=== PATIENT | female | born 1990 | race Caucasian/White ===

== ENCOUNTER 2019-01-12 19:33 | Emergency (ER) | payer SELFPAY ==
[2019-01-12] MEDS ORDERED: KETOROLAC 30 MG/ML INJ ONE (19:58)
[2019-01-12] MEDS ORDERED: HYDROCODONE/APAP 10/325 TAB ONE (20:48)
--- NOTE | 2019-01-12 20:50 | EDPHYS ---
Physician Documentation [facility] Name: Kimber Calvin Age: 28 yrs Sex: Female : 1990 Arrival Date: 01/12/2019 Time: 19:36 Bed 11 Private MD: ED Physician Phill Lantigua HPI: 01/12 20:20 This 28 yrs old Female presents to ER via Ambulatory with complaints of Jaw jmm Pain. 20:20 The patient presents with pain. Onset: The symptoms/episode began/occurred acutely, jmm just prior to arrival. Duration: The symptoms are continuous. This is a 28 year old female with no chronic medical conditions that presents to the ED with complaints of dental pain which radiate to the right cheek. Patient states pain began while eating just prior to arrival. Patient states she had broken the tooth 3 days ago. Denies fever. . 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 - Social history:: Smoking status: Patient uses tobacco products, smokes one pack cigarettes per day. Patient/guardian denies using alcohol, street drugs. - Ebola Screening: : No symptoms or risks identified at this time. ROS: 20:20 Constitutional: Negative for fever, chills, and weight loss. jmm 20:20 ENT: Positive for dental pain. 20:20 All other systems are negative. Exam: 20:20 Eyes: EOMI, no conjunctival erythema appreciated jmm 20:20 Neck: Trachea midline, Supple Chest/axilla: Normal chest wall appearance and motion. Cardiovascular: Regular rate and rhythm. No edema appreciated Respiratory: Normal respirations, no respiratory distress appreciated Back: Normal ROM Skin: General appearance color normal MS/ Extremity: Moves all extremities, no obvious deformities appreciated, no edema noted to the lower extremities Neuro: Awake and alert, normal gait Psych: Behavior is normal, Mood is normal, Patient is cooperative and pleasant 20:20 Constitutional: The patient appears alert, awake, uncomfortable. 20:20 Head/face: no swelling is appreciated to the face. 20:20 ENT: Dental exam: dental caries, that is moderate, specifically in the upper right third molar (#1), upper right second molar (#2) and upper right first molar (#3). Vital Signs: 19:54 BP 145 / 103; Pulse 100; Resp 18 S; Temp 98.4(O); Pulse Ox 99% on R/A; Weight 99.79 kg bb (R); Height 5 ft. 3 in. (160.02 cm) (R); Pain 10/10; 19:54 Body Mass Index 38.97 (99.79 kg, 160.02 cm) bb MDM: 20:20 Patient medically screened. po 20:49 Data reviewed: vital signs, nurses notes. Counseling: I had a detailed discussion with po the patient and/or guardian regarding: the historical points, exam findings, and any diagnostic results supporting the discharge/admit diagnosis, the need for outpatient follow up, to return to the emergency department if symptoms worsen or persist or if there are any questions or concerns that arise at home. ED course: pain appears related to dental pain. no swelling appreciated, patient is alert and non toxic in appearance, vitals are normal. patient advised to follow up with dentist and otherwise given return precautions for increased pain, swelling, fever, difficulty breathing, ect. patient understood and agrees with the plan of care. . Administered Medications: 20:38 Drug: [place] 10 mg-325 mg 1 tabs Route: PO; ak1 20:49 Follow up: Response: No adverse reaction ak1 Disposition: 01/13 02:26 Co-signature as Attending Physician, Phill Lantigua MD. rn Disposition: 01/12/19 20:50 Discharged to Home. Impression: Dental Pain. - Condition is Stable. - Discharge Instructions: Dental Pain. - Prescriptions for penicillin V potassium 500 mg Oral tablet - take 1 tablet by ORAL route every 6 hours; 40 tablet. Ultracet 37.5- 325 mg Oral Tablet - take 1 tablet by ORAL route every 6 hours - for up to 5 days; do not exceed 8 tablets per day.; 12 tablet. - Medication Reconciliation Form, Thank You Letter, Antibiotic Education, Prescription Opioid Use form. - Follow up: Private Physician; When: 2 - 3 days; Reason: Recheck today's complaints, Continuance of care, Re-evaluation by your physician. Signatures: Delbert Espinosa PA PA jmm Ballard Joslyn, RN RN Phill Portillo MD MD rn Nini Herndon RN RN ak1 Corrections: (The following items were deleted from the chart) 01/12 21:00 20:50 01/12/2019 20:50 Discharged to Home. Impression: Dental Pain. Condition is ak1 Stable. Forms are Medication Reconciliation Form, Thank You Letter, Antibiotic Education, Prescription Opioid Use. Follow up: Private Physician; When: 2 - 3 days; Reason: Recheck today's complaints, Continuance of care, Re-evaluation by your physician. po
--- NOTE | 2019-01-12 20:50 | ER ---
Nurse's Notes [facility] Name: Kimber Calvin Age: 28 yrs Sex: Female : 1990 Arrival Date: 01/12/2019 Time: 19:36 Bed 11 Private MD: Diagnosis: Dental Pain Presentation: 01/12 19:54 Presenting complaint: Patient states: she started having severe right sided jaw pain bb 10 while she was eating a little while ago. Transition of care: patient was not received from another setting of care. Onset of symptoms was January 12, 2019. Risk Assessment: Do you want to hurt yourself or someone else? Patient reports no desire to harm self or others. Initial Sepsis Screen: Does the patient meet any 2 criteria? No. Patient's initial sepsis screen is negative. Does the patient have a suspected source of infection? No. Patient's initial sepsis screen is negative. Care prior to arrival: None. 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 - Social history:: Smoking status: Patient uses tobacco products, smokes one pack cigarettes per day. Patient/guardian denies using alcohol, street drugs. - Ebola Screening: : No symptoms or risks identified at this time. Screenin:03 Abuse screen: Denies threats or abuse. Denies injuries from another. Nutritional ak1 screening: No deficits noted. Tuberculosis screening: No symptoms or risk factors identified. Fall Risk None identified. Assessment: 20:02 General: Appears in no apparent distress. Behavior is calm, cooperative. Pain: ak1 Complains of pain in mouth. Neuro: No deficits noted. Cardiovascular: No deficits noted. Respiratory: No deficits noted. GI: No signs and/or symptoms were reported involving the gastrointestinal system. : No signs and/or symptoms were reported regarding the genitourinary system. EENT: Reports pain in right cheek and right mandible. Derm: No signs and/or symptoms reported regarding the dermatologic system. Musculoskeletal: No signs and/or symptoms reported regarding the musculoskeletal system. Vital Signs: 19:54 BP 145 / 103; Pulse 100; Resp 18 S; Temp 98.4(O); Pulse Ox 99% on R/A; Weight 99.79 kg bb (R); Height 5 ft. 3 in. (160.02 cm) (R); Pain 10/10; 19:54 Body Mass Index 38.97 (99.79 kg, 160.02 cm) ED Course: 19:36 Patient arrived in ED. ds1 19:54 Triage completed. bb 19:54 Arm band placed on Patient placed in an exam room, on a stretcher, on pulse oximetry. bb 20:02 Nini Herndon, RN is Primary Nurse. ak1 20:03 Patient has correct armband on for positive identification. Bed in low position. Call ak1 light in reach. 20:05 Delbert Espinosa PA is PHCP. po 20:05 Phill Lantigua MD is Attending Physician. [facility] 20:59 No provider procedures requiring assistance completed. Patient did not have IV access ak1 during this emergency room visit. Administered Medications: 20:38 Drug: [place] 10 mg-325 mg 1 tabs Route: PO; ak1 20:49 Follow up: Response: No adverse reaction ak1 Outcome: 20:50 Discharge ordered by . [facility] 21:00 Discharged to home ambulatory, with family. ak1 21:00 Condition: good 21:00 Discharge instructions given to patient, family, Instructed on discharge instructions, follow up and referral plans. no drinking with medication, no driving heavy equipment, medication usage, safe sex practices, control, Demonstrated understanding of instructions, follow-up care, medications, Prescriptions given X 2. 21:00 Patient left the ED. ak1 Signatures: Delbert Espinosa PA PA jmm Sanford, Demi ds1 Joslyn Stiles RN RN bb Nini Herndon, MINDA RN ak1
[2019-01-12 21:37] VITALS: BP 145/103; TEMP 98.4; O2SAT 99
== END 2019-01-12 21:00 | disposition home or self-care (01) ==
LOC: ER 19:33
DX: K08.89 Other specified disorders of teeth and supporting structures (principal); F17.210 Nicotine dependence, cigarettes, uncomplicated
CPT/HCPCS: 99283

== ENCOUNTER 2019-10-03 21:27 | Emergency (ER) | payer SELFPAY ==
--- OUTSIDE RECORDS SUMMARY | 2019-10-03 21:29 | XMS REPORT | Summary of Care ---
:1990 Author Organization [facility] Address [address] [place] [address] Care Team Providers Name Role Phone Armani Waddell PUBLICITY DIRECTOR Primary Care Provider Reason for Visit Reason Comments Well Woman Exam Encounter Details Date Type Department Care Team Description 07/09/2019 Office Visit [facility]- Armani Waddell Well woman exam (Primary Dx); NEGIN Garcia Encounter for surveillance of contraceptives, unspecified contraceptive; [address] History of bilateral tubal ligation; [place], [place] [address] Screening for STD (sexually transmitted disease); [address] [place] [address] Poor dental hygiene; [phone] Class 2 obesity due to excess calories with body mass index (BMI) of 36.0 to 36.9 in adult, unspecified whether serious comorbidity present; BMI 36.0-36.9,adult; Tobacco use disorder Allergies No Known Allergiesdocumented as of this encounter (statuses as of 07/09/2019) Medications No known medicationsdocumented as of this encounter (statuses as of 07/09/2019) Active Problems Problem Noted Date Well woman exam 07/09/2019 Encounter for surveillance of contraceptives, unspecified contraceptive 2018 History of bilateral tubal ligation 07/09/2019 Screening for STD (sexually transmitted disease) 07/09/2019 Poor dental hygiene 07/09/2019 Class 2 obesity due to excess calories with body mass index (BMI) of 36.0 to 36.9 in adult, unspecified whether serious comorbidity present BMI 36.0-36.9,adult 07/09/2019 Tobacco use disorder 07/09/2019 documented as of this encounter (statuses as of 07/09/2019) Social History Tobacco Use Types Packs/Day Years Used Date Current Every Day Smoker Cigarettes 1 Smokeless Tobacco: Never Used Tobacco Cessation: Counseling Given: Yes Comments: has smoked for 20 yrs, not quitting at this time Sex Assigned at Date Recorded Not on file Job Start Date Occupation Industry Not on file Not on file Not on file Travel History Travel Start Travel End No recent travel history available. documented as of this encounter Last Filed Vital Signs Vital Sign Reading Time Taken Comments Blood Pressure 96/65 07/09/2019 8:21 AM CDT Pulse 71 07/09/2019 8:21 AM CDT Temperature 36.4 C (97.5 F) 07/09/2019 8:21 AM CDT Respiratory Rate 16 07/09/2019 8:21 AM CDT Oxygen Saturation - - Inhaled Oxygen Concentration - - Weight 95.9 kg (211 lb 6 oz) 07/09/2019 8:21 AM CDT Height 162.6 cm (5' 4") 07/09/2019 8:21 AM CDT Body Mass Index 36.28 07/09/2019 8:21 AM CDT documented in this encounter Progress Notes Armani Waddell, PUBLICITY DIRECTOR - 07/09/2019 7:45 AM CDT Chief complaint: Chief Complaint Patient presents with Well Woman Exam HPI 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 Patient denies any abdominal/pelvic pain. Patient has BTL for BCM and desires to continue. Patient report regular monthly menses, LMP was 06/12/2019. Patient is a current smoker. Patient denies current or past physical, sexual or emotional abuse. Histories OB History Para Term AB Living 3 3 3 3 SAB TAB Ectopic Multiple Live Births 3 # Outcome Date GA Lbr Cyrus/2nd Weight Sex Delivery Anes PTL Lv 3 Term 08/23/07 M , L JOHANN 2 Term 07/14/06 M , L JOHANN 1 Term 03/08/04 M , L JOHANN Past Medical History: Diagnosis Date Depression diagnosed as a manic depression as a child, not taking medication Screening for STD (sexually transmitted disease) 07/09/2019 Family History Problem Relation Age of Onset Other - see comments Mother thyroid No Significant Medical Problems Sister No Significant Medical Problems Brother Diabetes Maternal Grandmother Other - see comments Maternal Grandmother Thyroid Arthritis NoFHx Asthma NoFHx defects NoFHx Breast Cancer NoFHx Colon Cancer NoFHx Ovarian Cancer NoFHx Uterine Cancer NoFHx Cancer NoFHx Depression NoFHx Genetic NoFHx Heart NoFHx High cholesterol NoFHx Hypertension NoFHx Mental retardation NoFHx Neurological NoFHx Osteoporosis NoFHx Psychiatry NoFHx Family Status Relation Name Status Mo Alive Fa Alive no known history Sis Alive Bro Alive MGMo Alive MGFa of hep and liver cirrhosis NoFHx (Not Specified) Past Surgical History: Procedure Laterality Date SECTION 03/08/2004 07/14/2006, 08/23/2007 TUBAL LIGATION 08/23/2007 Social History Socioeconomic History Marital status: Spouse name: Not on file Number of children: Not on file Years of education: Not on file Highest education level: Not on file Occupational History Not on file Social Needs Financial resource strain: Not on file Food insecurity: Worry: Not on file Inability: Not on file Transportation needs: Medical: Not on file Non-medical: Not on file Tobacco Use Smoking status: Current Every Day Smoker Packs/day: 1.00 Types: Cigarettes Smokeless tobacco: Never Used Tobacco comment: has smoked for 20 yrs, not quitting at this time Substance and Sexual Activity Alcohol use: Not on file Comment: on occassion, x1/yr Drug use: Yes Frequency: 2.0 times per week Types: Marijuana Comment: 2x/wk Sexual activity: Yes Partners: Male control/protection: Surgical Comment: last sexual intercourse 07/07/2019 Lifestyle Physical activity: Days per week: Not on file Minutes per session: Not on file Stress: Not on file Relationships Social connections: Talks on phone: Not on file Gets together: Not on file Attends roman catholic service: Not on file Active member of club or organization: Not on file Attends meetings of clubs or organizations: Not on file Relationship status: Not on file Intimate partner violence: Fear of current or ex partner: Not on file Emotionally abused: Not on file Physically abused: Not on file Forced sexual activity: Not on file Other Topics Concern Not on file Social History Narrative Patient lives with spouse and children. Christian preference: non-episcopalian. Social History Substance and Sexual Activity Sexual Activity Yes Partners: Male control/protection: Surgical Comment: last sexual intercourse 07/07/2019 Labs Labs are pending. Radiology No new radiology. Allergies Kimber has No Known Allergies. Medications Kimber currently has no medications in their medication list. Review of Systems Constitutional: Negative for activity change, appetite change, fatigue, unexpected weight change, weight gain and weight loss. HENT: Negative for sore throat. Eyes: Negative for visual disturbance. Respiratory: Negative for cough and shortness of breath. Breasts: Negative for discharge, mass, pain and unequal size. Cardiovascular: Negative for chest pain, palpitations and leg swelling. Gastrointestinal: Negative. Negative for abdominal pain, anal bleeding, blood in stool, constipation, diarrhea, nausea, rectal pain and vomiting. Genitourinary: Negative for bladder incontinence, dysuria, urgency, flank pain, vaginal bleeding, vaginal discharge, genital sores, vaginal pain and pelvic pain. Skin: Negative for color change and rash. Neurological: Negative. Negative for dizziness, syncope and headaches. Psychiatric/Behavioral: Negative for confusion, self-injury and sleep disturbance. The patient is not nervous/anxious. Hematological: Negative for cold intolerance and heat intolerance. Endocrine: Negative for hair loss, cold intolerance, heat intolerance, weight gain and weight loss. BP 96/65 (BP Location: Right arm, Patient Position: Sitting, BP CUFF SIZE: Adult Small) | Pulse 71| Temp 36.4 C (97.5 F) (Oral) | Resp 16 | Ht 5' 4 " (1.626 m) | Wt 211 lb 6 oz (95.9 kg) | LMP 06/12/2019 (Approximate) | BMI 36.28 kg/m Pregravid BMI: Could not be calculated Physical Exam Vitals reviewed. Constitutional: She is oriented to person, place, and time. She appears well- developed, well-nourished and well-groomed. She has no deformities. HENT: Poor dental care Neck: No tenderness and no mass. No thyroid nodules and no thyromegaly palpated. Cardiovascular: Regular rate and rhythm. No murmur auscultated. Pulmonary/Chest: Breath sounds clear to auscultation. Normal inspiratory effort. Abdominal: Abdomen is soft. No mass palpated. No tenderness present. There is no guarding. Neuro/Psychiatric: She has a normal mood and affect. She is oriented to person, place, and time. Skin: Skin normal. No lesion and no rash present. Breast: Right breast exhibits no mass, no nipple discharge and no tenderness. Left breast exhibits no mass, no nipple discharge and no tenderness. Normal left breast and normal right breast Rectal: normal rectum External genitalia: Normal external genitalia appropriate for age. Normal hair distribution. No labial lesion. Promotions Assistant Sales Marketing present for the exam: Christel Lew Vagina:Normal vagina. No lesion inspected. No abnormal vaginal discharge found. Cervix: Normal cervix. No lesion. No tenderness and no discharge present. Uterus: Uterus is normal size and non-tender. 8cm Normal uterus Adnexa: Right adnexa without tenderness or mass. Left adnexa without tenderness or mass. Normal leftadnexa and normal right adnexa Anus/perineum: Normal perineum. Assessment/Plan Rubella: N/A, resources given VZV:N/A, resources given BMI: 36.28 Td: N/A Pap Smear:done today Gardasil: N/A Mammogram:N/A Guaiac:N/A Colonoscopy: N/A Well woman exam (primary encounter diagnosis) Comment: Routine WWE Plan: PAP Smear-Liquid Based, HIGH RISK HPV-THIN PREP Denies zika virus risk, signs and symptoms such as fever,rash,joint pain, conjunctivitis (red eyes), muscle pain, headaches; outside [place] travel to areas affected by zika, and FOB exposure to zika.Educated on use of mosquito repellent. Encounter for surveillance of contraceptives, unspecified contraceptive History of bilateral tubal ligation Comment: H/O BTL Plan: Patient desires to BTL for Screening for STD (sexually transmitted disease) Comment: patient desires testing Plan: GC & CHLAMYDIA AMPLIFIED ASSAY, TRICHOMONAS AMPLIFIED ASSAY, GALV ONLY - SYPHILIS IGG/IGM, HIV 1/2 AG-AB WITH REFLEX Safe se practices Poor dental hygiene Comment: poor hygine Plan: resources given Class 2 obesity due to excess calories with body mass index (BMI) of 36.0 to 36.9 in adult, unspecified whether serious comorbidity present BMI 36.0-36.9,adult Comment: BMI: 36.28 Plan:Patient encouraged to limit weight gain and sensible diet. Tobacco use disorder Comment: current smoker Plan: smoking cessation discussed. Return to clinic in 1 year for WWE. Discussed treatment options. Medications as ordered. Reviewed patient instructions and provided printed copy. This visit did not involve counseling and coordination that comprised more than 50% of the visit time. NEGIN Clarke 07/09/2019 9:27 AM Caron Velázquez RN - 07/09/2019 7:45 AM CDT28 year old presented to the clinic for WWE. 1) Previous BCM: BTL 2) Desired BCM: BTL 3) LMP: 06/12/2019 4) Last [place]: 07/07/2019 5) Last Pap: unknown Results: N/a HPV Results n/a 6) Tdap in last 10 years? unknown 7) HPV Vaccines : n/a 8) C/O Rash between breast. 9) Patient denies history of physical, emotional, or sexual abuse. Patient states she currently feels safe at home. documented in this encounter Plan of Treatment Name Type Priority Associated Diagnoses Date/Time PAP Smear-Liquid Based LAB Routine Well woman exam 07/09/2019 9:03 AM CDT HIGH RISK HPV-THIN PREP LAB Routine Well woman exam 07/09/2019 9:03 AM CDT GC & CHLAMYDIA AMPLIFIED LAB Routine Screening for STD 07/09/2019 9:03 AM ASSAY (sexually transmitted CDT disease) TRICHOMONAS AMPLIFIED LAB Routine Screening for STD 07/09/2019 9:03 AM ASSAY (sexually transmitted CDT disease) GALV ONLY - SYPHILIS LAB Routine Screening for STD 07/09/2019 9:12 AM IGG/IGM (sexually transmitted CDT disease) HIV 1/2 AG-AB WITH REFLEX LAB Routine Screening for STD 07/09/2019 9:12 AM (sexually transmitted CDT disease) Health Maintenance Due Date Last Done Comments PNEUMOCOCCAL 0-64 YEARS COMBINED SERIES (1 of 1 - 1994 PPSV23) VARICELLA VACCINES (1 of 2 - 13+ 2-dose series) 2001 DTaP,Tdap,and Td Vaccines (1 - Tdap) 2007 PAP SMEAR 2009 INFLUENZA VACCINE (#1) 2019 documented as of this encounter Results Not on filedocumented in this encounter Visit Diagnoses Diagnosis Well woman exam - Primary Routine general medical examination at a health care facility Encounter for surveillance of contraceptives, unspecified contraceptive History of bilateral tubal ligation Screening for STD (sexually transmitted disease) Screening examination for venereal disease Poor dental hygiene Class 2 obesity due to excess calories with body mass index (BMI) of 36.0 to 36.9 in adult, unspecified whether serious comorbidity present BMI 36.0-36.9,adult Body Mass Index 36.0-36.9, adult Tobacco use disorder documented in this encounter Insurance Payer Benefit Plan Subscriber ID Effective Phone Address Type / Group Dates [facility] xxxxxxxxx 2019-Prese [phone] [address] Medicaid WOMEN nt [address] [place] [address] documented as of this encounter
--- OUTSIDE RECORDS SUMMARY | 2019-10-03 21:29 | XMS REPORT ---
:1990 [facility] Address [address] [place] [address] [address] [place] [address] Care Team Providers Name Role Phone Unavailable Unavailable Unavailable Problems This patient has no known problems. Allergies, Adverse Reactions, Alerts This patient has no known allergies or adverse reactions. Medications This patient has no known medications.
--- OUTSIDE RECORDS SUMMARY | 2019-10-03 21:29 | XMS REPORT | Summary of Care ---
:1990 Author Organization [facility] Address [address] [place] [address] Care Team Providers Name Role Phone Armani Waddell PERINATAL NURSE Primary Care Provider Reason for Visit Reason Comments Well Woman Exam Encounter Details Date Type Department Care Team Description 07/09/2019 Office Visit [facility]- Armani Waddell Well woman exam (Primary Dx); NEGIN Garcia Encounter for surveillance of contraceptives, unspecified contraceptive; [address] [place] History of bilateral tubal ligation; [place] Screening for STD (sexually transmitted disease); [address] [place] [address] Poor dental hygiene; [phone] Class 2 obesity due to excess calories [...] in this encounter Progress Notes Armani Waddell, PERINATAL NURSE - 07/09/2019 7:45 AM CDT Chief complaint: [...] file Gets together: Not on file Attends orthodoxy service: Not on file Active member of [...] Narrative Patient lives with spouse and children. Orthodoxy preference: non-sikhism. Social History Substance and Sexual Activity Sexual [...] age. Normal hair distribution. No labial lesion. Roller Shop Supervisor present for the exam: Christel Lew Vagina:Normal [...] BCM: BTL 3) LMP: 06/12/2019 4) Last [place]: 07/07/2019 5) Last Pap: unknown Results: N/a [...] Effective Phone Address Type / Group Dates [facility] xxxxxxxxx 2019-Prese [phone] Medicaid WOMEN nt [address] [place] [address] documented as of this encounter
[2019-10-03] MEDS ORDERED: DIPHENHYDRAMINE 25 MG TAB/CAP ONE (21:54)
[2019-10-03] MEDS ORDERED: FAMOTIDINE 20 MG TAB ONE (21:54)
[2019-10-03] MEDS ORDERED: predniSONE 20 MG TAB ONE (21:54)
--- NOTE | 2019-10-03 21:54 | EDPHYS ---
Physician Documentation [facility] Name: Kimber Calvin Age: 28 yrs Sex: Female : 1990 Arrival Date: 10/03/2019 Time: 21:31 Bed 14 Private MD: ED Physician Juliocesar Garcia HPI: 10/04 06:41 This 28 yrs old Female presents to ER via Ambulatory with complaints of Rash, tw4 Itching. 06:41 The patient's rash thought to be caused by an unknown cause. The rash is located on the tw4 body diffusely. The rash can be described as papular. Onset: The symptoms/episode began/occurred yesterday. Associated signs and symptoms: Pertinent positives: nausea. Severity of symptoms: At their worst the symptoms were moderate in the emergency department the symptoms are unchanged. The patient has experienced a previous episode. Historical: - Allergies: 10/03 22:03 No Known Allergies; ea - Home Meds: 22:03 None [Active]; ea - PMHx: 22:03 None; ea - PSHx: 22:03 None; ea - Immunization history:: Adult Immunizations. - Social history:: Smoking status: Patient uses tobacco products. - Ebola Screening: : No symptoms or risks identified at this time. ROS: 10/04 06:41 Constitutional: Negative for fever, chills, and weight loss, ENT: Negative for injury, tw4 pain, and discharge, Cardiovascular: Negative for chest pain, palpitations, and edema, Respiratory: Negative for shortness of breath, cough, wheezing, and pleuritic chest pain, Abdomen/GI: Negative for abdominal pain, nausea, vomiting, diarrhea, and constipation, Back: Negative for injury and pain, MS/Extremity: Negative for injury and deformity. Skin: Positive for rash. Exam: 06:41 Constitutional: This is a well developed, well nourished patient who is awake, alert, tw4 and in no acute distress. Head/Face: Normocephalic, atraumatic. Chest/axilla: Normal chest wall appearance and motion. Nontender with no deformity. No lesions are appreciated. Cardiovascular: Regular rate and rhythm with a normal S1 and S2. No gallops, murmurs, or rubs. Normal PMI, no JVD. No pulse deficits. Respiratory: Lungs have equal breath sounds bilaterally, clear to auscultation and percussion. No rales, rhonchi or wheezes noted. No increased work of breathing, no retractions or nasal flaring. Abdomen/GI: Soft, non-tender, with normal bowel sounds. No distension or tympany. No guarding or rebound. No evidence of tenderness throughout. 06:41 Skin: urticaria. Vital Signs: 10/03 21:47 BP 130 / 87; Pulse 89; Resp 18; Temp 97.8(O); Pulse Ox 99% ; Weight 90.72 kg; Height 5 ea ft. 3 in. (160.02 cm); 21:47 Body Mass Index 35.43 (90.72 kg, 160.02 cm) ea MDM: 21:45 Patient medically screened. tw4 10/04 06:41 Differential diagnosis: impetigo, varicella. Data reviewed: vital signs, nurses notes. tw4 Data interpreted: Pulse oximetry: Interpretation: normal. Counseling: I had a detailed discussion with the patient and/or guardian regarding: the historical points, exam findings, and any diagnostic results supporting the discharge/admit diagnosis. Special discussion: I discussed with the patient/guardian in detail that at this point there is no indication for admission to the hospital. It is understood, however, that if the symptoms persist or worsen the patient needs to return immediately for re-evaluation. Administered Medications: 10/03 22:05 Drug: Benadryl 25 mg Route: PO; ea 22:18 Follow up: Response: No adverse reaction ea 22:05 Drug: Pepcid 20 mg Route: PO; ea 22:18 Follow up: Response: No adverse reaction ea 22:06 Drug: predniSONE 60 mg Route: PO; ea 22:17 Follow up: Response: No adverse reaction ea Disposition: 10/03/19 21:53 Discharged to Home. Impression: Allergic reaction. - Condition is Stable. - Discharge Instructions: Allergies, Adult. - Prescriptions for Medrol (Dequan) 4 mg Oral Tablets, Dose Pack - take 1 tablet by ORAL route as directed - follow package instructions; 1 packet. EpiPen 0.3 mg Injection auto- injector - inject 1 pen by INTRAMUSCULAR route once daily Inject into the outer portion of the thigh, through clothing if necessary. Indicated in the emergency treatment of allergic reactions; 1 Cartridge. - Work release form, Family Work Release, Medication Reconciliation Form, Thank You Letter, Antibiotic Education, Prescription Opioid Use form. - Follow up: Private Physician; When: Upon discharge from the Emergency Department; Reason: Recheck today's complaints, Continuance of care. - Problem is new. - Symptoms have improved. Signatures: Carina Alfred RN RN ea Wadley, Terrence, MD MD tw4 Corrections: (The following items were deleted from the chart) 22:18 21:53 10/03/2019 21:53 Discharged to Home. Impression: Allergic reaction. Condition is ea Stable. Forms are Medication Reconciliation Form, Thank You Letter, Antibiotic Education, Prescription Opioid Use. Follow up: Private Physician; When: Upon discharge from the Emergency Department; Reason: Recheck today's complaints, Continuance of care. Problem is new. Symptoms have improved. tw4
--- NOTE | 2019-10-03 22:19 | ER ---
Nurse's Notes [facility] Name: Kimber Calvin Age: 28 yrs Sex: Female : 1990 Arrival Date: 10/03/2019 Time: 21:31 Bed 14 Private MD: Diagnosis: Allergic reaction Presentation: 10/03 21:47 Presenting complaint: Patient states: Pt she was taking a shower tonight and started ea itching. Pr reports she noticed the itching a few days ago but only noticed the bumps tonight. Transition of care: patient was not received from another setting of care. Onset: The symptoms/episode began/occurred gradually. Anaphylaxis evaluation, no signs or symptoms of anaphylaxis were noted. Onset of symptoms was October 03, 2019. Risk Assessment: Do you want to hurt yourself or someone else? Patient reports no desire to harm self or others. Initial Sepsis Screen: Does the patient meet any 2 criteria? No. Patient's initial sepsis screen is negative. Does the patient have a suspected source of infection? No. Patient's initial sepsis screen is negative. Care prior to arrival: None. 21:47 Method Of Arrival: Ambulatory ea 21:47 Acuity: RUBY 5 ea Historical: - Allergies: 22:03 No Known Allergies; ea - Home Meds: 22:03 None [Active]; ea - PMHx: 22:03 None; ea - PSHx: 22:03 None; ea - Immunization history:: Adult Immunizations. - Social history:: Smoking status: Patient uses tobacco products. - Ebola Screening: : No symptoms or risks identified at this time. Screenin:02 Abuse screen: Denies threats or abuse. Nutritional screening: No deficits noted. ea Tuberculosis screening: No symptoms or risk factors identified. Fall Risk None identified. Assessment: 22:03 General: Appears in no apparent distress. Behavior is appropriate for age. Pain: Denies ea pain. Neuro: Level of Consciousness is awake, alert, obeys commands, Oriented to person, place, time, situation. Cardiovascular: No deficits noted. Respiratory: Airway is patent Respiratory effort is even, unlabored, Respiratory pattern is regular, symmetrical. GI: No signs and/or symptoms were reported involving the gastrointestinal system. : No signs and/or symptoms were reported regarding the genitourinary system. Derm: Rash noted that is itchy. 22:15 Reassessment: Patient and/or family updated on plan of care and expected duration. Pain ea level reassessed. Patient is alert, oriented x 3, equal unlabored respirations, skin warm/dry/pink. Discharge instruction given to patient, verbalized the understanding of instruction, Pt left ED ambulatory accompanied by significant other. Vital Signs: 21:47 BP 130 / 87; Pulse 89; Resp 18; Temp 97.8(O); Pulse Ox 99% ; Weight 90.72 kg; Height 5 ea ft. 3 in. (160.02 cm); 21:47 Body Mass Index 35.43 (90.72 kg, 160.02 cm) ea ED Course: 21:31 Patient arrived in ED. elroy 21:45 Juliocesar Garcia MD is Attending Physician. tw4 21:47 Carina Alfred RN is Primary Nurse. ea 22:01 Triage completed. ea 22:02 Arm band placed on right wrist. Patient placed in an exam room, on a stretcher, on ea pulse oximetry. 22:03 Patient has correct armband on for positive identification. Bed in low position. Call ea light in reach. Side rails up X2. 22:16 No provider procedures requiring assistance completed. Patient did not have IV access ea during this emergency room visit. Administered Medications: 22:05 Drug: Benadryl 25 mg Route: PO; ea 22:18 Follow up: Response: No adverse reaction ea 22:05 Drug: Pepcid 20 mg Route: PO; ea 22:18 Follow up: Response: No adverse reaction ea 22:06 Drug: predniSONE 60 mg Route: PO; ea 22:17 Follow up: Response: No adverse reaction ea Outcome: 21:53 Discharge ordered by . tw4 22:17 Discharged to home ambulatory. ea 22:17 Condition: stable 22:17 Discharge instructions given to patient, Instructed on discharge instructions, follow up and referral plans. medication usage, Demonstrated understanding of instructions, follow-up care, medications, Prescriptions given X 2. 22:18 Patient left the ED. ea Signatures: Ronna Palma Elena, RN RN Juliocesar Ortiz MD MD tw4
[2019-10-03 22:28] VITALS: BP 130/87; TEMP 97.8; O2SAT 99
== END 2019-10-03 22:18 | disposition home or self-care (01) ==
LOC: ER 21:27
DX: R21 Rash and other nonspecific skin eruption (principal); T78.40XA Allergy, unspecified, initial encounter; X58.XXXA Exposure to other specified factors, initial encounter; Z72.0 Tobacco use
CPT/HCPCS: 99283; J7512

== ENCOUNTER 2020-03-20 08:46 | Emergency (ER) | payer SELFPAY ==
[2020-03-20] MEDS ORDERED: MORPHINE 2 MG/ML SYR ONE (09:58)
[2020-03-20] MEDS ORDERED: CLINDAMYCIN 600MG/D5W 600 MG/50 ML BAG IV ONE (09:58)
[2020-03-20 10:30] LABS: Absolute Lymphocytes (CBC) 1.3 K/uL (0.7-4.9); Basophils % 1.1 % (0-1.3); Hematocrit 41.4 % (36.0-45.0); MPV 9.8 fL (7.6-11.3); RBC Red Blood Cell Count 4.34 M/uL (3.86-4.86)
[2020-03-20 10:41] LABS: Potassium 4.2 mmol/L (3.5-5.1)
[2020-03-20 11:01] LABS: Urine Blood NEGATIVE (NEG); Urine Glucose NEGATIVE (NEG); Urine Protein NEGATIVE (NEG); Urine pH 5.5 (5.0-7.0)
--- NOTE | 2020-03-20 11:01 | EDPHYS ---
Physician Documentation [facility] Name: Kimber Calvin Age: 29 yrs Sex: Female : 1990 Arrival Date: 03/20/2020 Time: 08:48 Bed 6 Private MD: ED Physician Phill Lantigua HPI: 03/20 09:30 This 29 yrs old Female presents to ER via Ambulatory with complaints of Mouth cp Problem. 09:30 The patient presents with pain, swelling. The problem is located in the right upper cp posterior roof of mouth. 09:30 Onset: The symptoms/episode began/occurred 2 day(s) ago. cp 09:30 Duration: The symptoms are continuous, and are steadily getting worse. Associated signs cp and symptoms: Pertinent positives: swelling, Pertinent negatives: dysphagia, fever, inability to eat, vomiting. Severity of symptoms: in the emergency department the symptoms are unchanged, despite home interventions. 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 - Social history:: Smoking status: Patient reports the use of cigarette tobacco products, denies chronic smoking, but will smoke occasionally. ROS: 09:35 Constitutional: Negative for body aches, chills, fever, poor PO intake. cp 09:35 Eyes: Negative for injury, pain, redness, and discharge. cp 09:35 ENT: Positive for dental pain, swelling right upper posterior roof of mouth, Negative for drainage from ear(s), sore throat, difficulty swallowing, difficulty handling secretions. 09:35 Cardiovascular: Negative for chest pain. 09:35 Respiratory: Negative for cough, shortness of breath. 09:35 Abdomen/GI: Negative for abdominal pain, nausea and vomiting. 09:35 Neuro: Negative for altered mental status, headache, weakness. 09:35 All other systems are negative. Exam: 09:40 Constitutional: The patient appears in no acute distress, alert, awake, well developed, cp well nourished, uncomfortable. 09:40 Head/Face: Normocephalic, atraumatic. cp 09:40 Eyes: Periorbital structures: appear normal, Conjunctiva: normal, no exudate, no injection, Lids and lashes: appear normal, bilaterally. 09:40 ENT: External ear(s): are unremarkable, Ear canal(s): are normal, clear, TM's: are normal, Nose: is normal, Mouth: Lips: moist, Oral mucosa: pink and intact, moist, abscess, is not appreciated, Posterior pharynx: Airway: no evidence of obstruction, patent, Dental exam: dental caries, that is moderate, diffusely, fractured teeth are noted, specifically the upper right second molar (#2) and upper right first molar (#3), gum swelling, that is mild, specifically in the right upper posterior gumline, pain, that is severe, specifically in the upper right second molar (#2), upper right first molar (#3) and upper right second bicuspid (#4). 09:40 Neck: ROM/movement: is normal, is supple, without pain, no range of motions limitations, no nuchal rigidity. 09:40 Chest/axilla: Inspection: normal. 09:40 Cardiovascular: Rate: normal, Rhythm: regular. 09:40 Respiratory: the patient does not display signs of respiratory distress, Respirations: normal, no use of accessory muscles, labored breathing, is not present, Breath sounds: are clear throughout, no decreased breath sounds. 09:40 Abdomen/GI: Exam negative for discomfort, distension, guarding, Inspection: abdomen appears normal. Vital Signs: 09:13 BP 140 / 098; Pulse 82; Resp 19; Temp 97.9; Pulse Ox 97% on R/A; jb1 10:13 BP 148 / 91; Pulse 78; Resp 17; Pulse Ox 100% on R/A; rb1 11:23 BP 144 / 73; Pulse 81; Resp 16; Temp 98; Pulse Ox 98% ; bp MDM: 09:18 Patient medically screened. cp 09:30 Differential diagnosis: dental caries, dental abscess, pericoronitis, aphthous ulcers. cp 11:00 Data reviewed: vital signs, nurses notes, lab test result(s), and as a result, I will cp discharge patient. 11:00 Response to treatment: the patient's symptoms have markedly improved after treatment. cp 11:04 ED course: [place] prescription monitor website shows patient with narcotic score of 020 cp and sedative score of 010. 03/20 09:24 Order name: CBC with Diff; Complete Time: 10:52 cp 03/20 10:52 Interpretation: Normal except: WBC 11.1; MANUEL% 79.9; LYM% 12.0; NEUT A 8.9. cp 03/20 09:24 Order name: BMP; Complete Time: 10:52 cp 03/20 10:52 Interpretation: Normal except: CL 109; GFR 79. cp 03/20 10:22 Order name: Urine Dipstick--Ancillary (enter results); Complete Time: 11:13 eb 03/20 11:13 Interpretation: Reviewed. cp 03/20 10:22 Order name: Urine --Ancillary (enter results); Complete Time: 11:13 eb 03/20 11:13 Interpretation: Reviewed. cp 03/20 09:24 Order name: Urine Test (obtain specimen); Complete Time: 10:27 cp 03/20 09:24 Order name: IV; Complete Time: 10:27 cp 03/20 10:53 Order name: PO challenge; Complete Time: 11:15 cp Administered Medications: 10:17 Drug: morphine 2 mg Route: IVP; Site: right forearm; rb1 11:26 Follow up: Response: Pain is decreased bp 10:17 Drug: Clindamycin 600 mg Route: IVPB; Infused Over: 30 mins; Site: right forearm; rb1 11:26 Follow up: IV Status: Completed infusion; IV Intake: 50ml bp Disposition: 12:19 Co-signature as Attending Physician, Phill Lantigua MD. rn Disposition: 03/20/20 11:00 Discharged to Home. Impression: Dental caries, Jaw pain - right upper. - Condition is Stable. - Discharge Instructions: Dental Caries, Adult, Dental Pain. - Prescriptions for Clindamycin HCl 300 mg Oral Capsule - take 1 capsule by ORAL route every 6 hours for 10 days; 40 capsule. Tylenol- Codeine #3 300-30 mg Oral Tablet - take 2 tablets by ORAL route every 6 hours As needed; 20 tablet. - Medication Reconciliation Form, Thank You Letter, Antibiotic Education, Prescription Opioid Use form. - Follow up: Private Physician; When: 2 - 3 days; Reason: Recheck today's complaints. - Problem is new. - Symptoms have improved. Signatures: Dispatcher [employer] EDPhill Caballero MD MD rn Pool Plunkett PA PA cp Jacqueline Linares, RN RN rb1 Martin Alfonso, RN RN bp Corrections: (The following items were deleted from the chart) 11:27 11:00 03/20/2020 11:00 Discharged to Home. Impression: Dental caries; Jaw pain - right bp upper. Condition is Stable. Forms are Medication Reconciliation Form, Thank You Letter, Antibiotic Education, Prescription Opioid Use. Follow up: Private Physician; When: 2 - 3 days; Reason: Recheck today's complaints. Problem is new. Symptoms have improved. cp
--- NOTE | 2020-03-20 11:01 | ER ---
Nurse's Notes [facility] Name: Kimber Calvin Age: 29 yrs Sex: Female : 1990 Arrival Date: 03/20/2020 Time: 08:48 Bed 6 Private MD: Diagnosis: Dental caries;Jaw pain-right upper Presentation: 03/20 09:06 Chief complaint: Patient states: Got a bump on the right side of the roof of her mouth rb1 two days ago and she cannot control the pain. Coronavirus screen: Proceed with normal triage. Ebola Screen: Patient negative for fever greater than or equal to 101.5 degrees Fahrenheit, and additional compatible Ebola Virus Disease symptoms Patient denies travel to an Ebola-affected area in the 21 days before illness onset. Initial Sepsis Screen: Does the patient meet any 2 criteria? No. Patient's initial sepsis screen is negative. Does the patient have a suspected source of infection? No. Patient's initial sepsis screen is negative. Risk Assessment: Do you want to hurt yourself or someone else? Patient reports no desire to harm self or others. Onset of symptoms was March 18, 2020. 09:06 Method Of Arrival: Ambulatory rb1 09:06 Acuity: RUBY 4 rb1 Triage Assessment: 09:06 General: Appears uncomfortable, Behavior is calm, cooperative, Denies fever. Pain: rb1 Complains of pain in right side of the roof of mouth Pain currently is 10 out of 10 on a pain scale. Pain began 2-3 days ago. Neuro: Level of Consciousness is awake, alert, obeys commands, Oriented to person, place, time, situation. Cardiovascular: Capillary refill < 3 seconds. Respiratory: Airway is patent Respiratory effort is even, unlabored, Respiratory pattern is regular, symmetrical. GI: No signs and/or symptoms were reported involving the gastrointestinal system. : No signs and/or symptoms were reported regarding the genitourinary system. Derm: Skin is pink, warm \T\ dry. 09:06 EENT: Poor dentition noted. 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 - Social history:: Smoking status: Patient reports the use of cigarette tobacco products, denies chronic smoking, but will smoke occasionally. Screenin:06 Abuse screen: Denies threats or abuse. Nutritional screening: No deficits noted. rb1 Tuberculosis screening: No symptoms or risk factors identified. Fall Risk None identified. Assessment: 09:06 General: See triage assessment. rb1 10:00 Reassessment: Patient appears in no apparent distress at this time. No changes from rb1 previously documented assessment. 11:00 Reassessment: PO CHALLENGE SUCCESSFUL. bp 11:25 Reassessment: PT D/C HOME AMBULATORY, DX WITH DENTAL CARIES. bp Vital Signs: 09:13 BP 140 / 098; Pulse 82; Resp 19; Temp 97.9; Pulse Ox 97% on R/A; jb1 10:13 BP 148 / 91; Pulse 78; Resp 17; Pulse Ox 100% on R/A; rb1 11:23 BP 144 / 73; Pulse 81; Resp 16; Temp 98; Pulse Ox 98% ; bp ED Course: 08:48 Patient arrived in ED. ag5 09:06 Arm band placed on right wrist. rb1 09:06 Patient has correct armband on for positive identification. Bed in low position. Call rb1 light in reach. Side rails up X 1. Pulse ox on. NIBP on. 09:07 Pool Plunkett PA is PHCP. cp 09:07 Phill Lantigua MD is Attending Physician. cp 09:15 Jacqueline Linares, MINDA is Primary Nurse. rb1 09:23 Triage completed. rb1 10:10 Missed attempt(s): 22 gauge in right antecubital area. rb1 10:15 Inserted saline lock: 22 gauge in right forearm, using aseptic technique. ,using rb1 aseptic technique. IV inserted by MINDA Salazar Blood collected. 11:23 No provider procedures requiring assistance completed. IV discontinued, intact, bp bleeding controlled, No redness/swelling at site. Pressure dressing applied. Administered Medications: 10:17 Drug: morphine 2 mg Route: IVP; Site: right forearm; rb1 11:26 Follow up: Response: Pain is decreased bp 10:17 Drug: Clindamycin 600 mg Route: IVPB; Infused Over: 30 mins; Site: right forearm; rb1 11:26 Follow up: IV Status: Completed infusion; IV Intake: 50ml bp Intake: 11:26 IV: 50ml; Total: 50ml. bp Outcome: 11:00 Discharge ordered by . cp 11:25 Discharged to home ambulatory. bp 11:25 Condition: stable 11:25 Discharge instructions given to patient, Instructed on discharge instructions, follow up and referral plans. medication usage, Demonstrated understanding of instructions, follow-up care, medications, Prescriptions given X 2. 11:27 Patient left the ED. bp Signatures: Jimbo Lyle jb1 Pool Plunkett PA PA cp Barber, Rebecca, RN RN rb1 Martin Alfonso RN RN bp Ivanna Howe ag5
== END 2020-03-20 11:27 | disposition home or self-care (01) ==
LOC: ER 08:46
DX: K02.9 Dental caries, unspecified (principal); F17.210 Nicotine dependence, cigarettes, uncomplicated
CPT/HCPCS: 36415; 80048; 81003; 81025; 85025; 96365; 96375; 99284; J2270

== ENCOUNTER 2020-12-23 19:24 | Emergency (ER) | payer SELFPAY ==
--- OUTSIDE RECORDS SUMMARY | 2020-12-23 19:26 | XMS REPORT | Continuity of Care Document ---
:1990 Author Organization [facility] t Address [address] [place] [address] Care Team Providers Name Role Phone Rik MOLINA S Attending Clinician Doctor Unassigned, Name Attending Clinician Unavailable Litzy Graham Attending Clinician Problems This patient has no known problems. Allergies, Adverse Reactions, Alerts This patient has no known allergies or adverse reactions. Medications This patient has no known medications. Procedures This patient has no known procedures. 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
--- OUTSIDE RECORDS SUMMARY | 2020-12-23 19:26 | XMS REPORT | Summary of Care ---
:1990 Author Organization [facility] - [facility] Address [address] [place] [id number] Care Team Providers Name Role Phone Litzy Waddell Primary Care Provider Pcp, Does Not Have A Unavailable Reason for Referral MRI/CAT Scan (STAT) Status Reason Specialty Diagnoses / Referred By Referred To Procedures Contact Contact New Request Diagnostic Diagnoses Mouth abscess Janeth Jolly, Radiology Procedures CT MAXILLOFACIAL/MANDIBLE W CONTRAST PAC [address] [place] [address] [place] [address] Reason for Visit Reason Comments Dental Problem Auth/Cert Status Reason Specialty Diagnoses / Referred By Referred To Procedures Contact Contact Emergency Medicine [facility] ergency Dept [address] [place] [address] Fax: Encounter Details Date Type Department Care Team Description 12/23/2020 Emergency ADC-Emergency Janeth Jolly, PAC Mouth abscess (Primary Department [address] [facility] Dx) [address] [place] [address] [phone] [place] [address] [phone] Allergies No Known Allergiesdocumented as of this encounter (statuses as of 12/23/2020) Medications Medication Sig Dispensed Refills Start Date End Date Status azithromycin (ZITHROMAX Take 1 Tab by 1 Package 0 12/17/2015 Active Z-MORIS) 250 mg tablet mouth daily. benzonatate (TESSALON Take 1 Cap by 14 Cap 0 12/17/2015 Active PERLES) 100 mg capsule mouth 3 (three) times daily as needed for Cough. traMADOL (ULTRAM) 50 mg Take 1 Tab by 15 Tab 0 12/17/2015 Active tablet mouth every 8 (eight) hours as needed for Pain (scale 4-6). documented as of this encounter (statuses as of 12/23/2020) Active Problems Problem Noted Date Well woman exam 07/09/2019 Encounter for surveillance of contraceptives, unspecif ied contraceptive 07/09/2019 History of bilateral tubal ligation 07/09/2019 Screening for STD (sexually transmitted disease) 07/09 Poor dental hygiene 07/09/2019 Class 2 obesity due to excess calories with body mass index (BMI) of 36.0 07/09/2019 to 36.9 in adult, unspecified whether serious comorbid ity present BMI 36.0-36.9,adult 07/09/2019 Tobacco use disorder 07/09/2019 Obesity (BMI 30-39.9) 04/29/2017 documented as of this encounter (statuses as of 12/23/2020) Social History Tobacco Use Types Packs/Day Years Used Date Current Every Day Smoker Cigarettes 1 Smokeless Tobacco: Never Used Comments: has smoked for 20 yrs, not elda tting at this time Sex Assigned at Date Recorded Not on file COVID-19 Exposure Response Date Recorded In the last month, have you been in contact with No / Unsure 12/23/2020 10:05 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 documented as of this encounter Last Filed Vital Signs Vital Sign Reading Time Taken Comments Blood Pressure 145/95 12/23/2020 10:24 AM LEAD ETL DEVELOPER Pulse 85 12/23/2020 10:24 AM LEAD ETL DEVELOPER Temperature 37.1 C (98.7 F) 12/23/2020 10:24 AM LEAD ETL DEVELOPER Respiratory Rate 18 12/23/2020 10:24 AM LEAD ETL DEVELOPER Oxygen Saturation 97% 12/23/2020 10:24 AM LEAD ETL DEVELOPER Inhaled Oxygen Concentration - - Weight 72.6 kg (160 lb) 12/23/2020 10:24 AM LEAD ETL DEVELOPER Height - - Body Mass Index 27.46 07/09/2019 8:21 AM CDT documented in this encounter ED Notes Noreen James RN - 12/23/2020 11:30 AM CSTCalled patient no answer ETL DEVELOPER Noreen James RN - 12/23/2020 10:23 AM CSTPt reports that she has a tooth abscess to the right side of the mouth. documented in this encounter Miscellaneous Notes ED Nurse Note - Prem Marshall RN - 12/23/2020 1:06 PM CSTCalled to room no answer ETL DEVELOPER documented in this encounter Plan of Treatment Name Type Priority Associated Diagnoses Order S chedule CBC WITH DIFF LAB Routine Mouth abscess ONCE for 1 Oc currences starting 2020 until 1 BASIC METABOLIC PANEL LAB Routine Mouth abscess ONCE for 1 Occurrences (NA, K, CL, CO2, starting GLUCOSE, BUN, until 12/23/19 21 CREATININE, CA) CT IMAGING STAT Mouth abscess ONCE for 1 Occ urrences MAXILLOFACIAL/MANDIBLE start ing 12/23/2020 W CONTRAST until 1 POCT TEST LAB ANTONIO Mouth abscess ONCE fo r 1 Occurrences starting 2020 until 1 COVID-19 (ID NOW RAPID LAB Routine Mouth abscess ONCE for 1 Occurrences TESTING) starting 2020 until 1 Health Maintenance Due Date Last Done Comments VARICELLA VACCINES (1 of 2 - 1989 2-dose childhood series) Depression Screening 2000 DTaP,Tdap,and Td Vaccines (1 - 2007 Tdap) INFLUENZA VACCINE (#1) 2020 PAP SMEAR 07/09/2022 07/09/2019 PNEUMOCOCCAL 0-64 YEARS COMBINED Aged Out No longer eligible based on SERIES patient's age to complete this topic documented as of this encounter Procedures Procedure Name Priority Date/Time Associated Diagnosis Comme nts CONSENT/REFUSAL FOR Routine 12/23/2020 10:05 AM LEAD ETL DEVELOPER DIAGNOSIS AND TREATMENT documented in this encounter Results Not on filedocumented in this encounter Visit Diagnoses Diagnosis Mouth abscess - Primary Cellulitis and abscess of oral soft tiss ues documented in this encounter Additional Health Concerns Infection Onset Date Last Indicated Resolved Time COVID-19 Rule Out 12/23/2020 12/23/2020 documented as of this encounter
--- OUTSIDE RECORDS SUMMARY | 2020-12-23 19:26 | XMS REPORT | Summary of Care ---
:1990 Author Organization [facility] - Health Address [address] [place] [address] Care Team Providers Name Role Phone Litzy Waddell Primary Care Provider Pcp, Does Not Have A Unavailable Encounter Details Date Type Department Care Team Description 12/23/2020 Orders Only [facility] Doctor Unassigned, No [address] [facility] [address] [address] [place] [address] Allergies No Known Allergiesdocumented as of this [...] Tobacco Use Types Packs/Day Years Used Date Never Assessed Sex Assigned at Date Recorded Not on file documented as of this encounter Last Filed Vital Signs Not on filedocumented in this encounter Plan of Treatment Health Maintenance Due Date Last Done Comments VARICELLA VACCINES (1 of 2 - 1989 2-dose childhood series) Depression Screening 2000 DTaP,Tdap,and Td Vaccines ( - 2007 Tdap) INFLUENZA VACCINE (#1) 2020 PAP SMEAR 07/09/2022 07/09/2019 PNEUMOCOCCAL 0-64 YEARS COMBINED Aged Out No longer eligible based on SERIES patient's age to complete this topic documented as of this encounter Procedures Procedure Name Priority Date/Time Associated Diagnosis Comme nts NOTICE OF PRIVACY Routine 12/23/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 [id number] 2019-Prese [phone] Medicaid WOMEN nt [address] [place] [address] documented as of this encounter
[2020-12-23] MEDS ORDERED: LIDOCAINE 1% MPF 5 ML VIAL ONE (21:37)
[2020-12-23] MEDS ORDERED: AMOX/K CLAV 875 MG TAB ONE (21:37)
--- NOTE | 2020-12-23 21:44 | EDPHYS ---
Physician Documentation [facility] Name: Kimber Calvin Age: 30 yrs Sex: Female : 1990 Arrival Date: 12/23/2020 Time: 19:24 Bed 30 Private MD: ED Physician Pool Vasquez HPI: 12/23 21:12 This 30 yrs old Female presents to ER via Ambulatory with complaints of pippa Abcess In Mouth. 21:12 The patient presents with redness, swelling. The problem is located in the hard palate. pippa Onset: The symptoms/episode began/occurred 3 day(s) ago. Duration: The symptoms are continuous, and are steadily getting worse. Modifying factors: The symptoms are alleviated by nothing, the symptoms are aggravated by nothing. Associated signs and symptoms: The patient has no apparent associated signs or symptoms. Severity of symptoms: At their worst the symptoms were moderate, in the emergency department the symptoms are unchanged. The patient has not experienced similar symptoms in the past. Historical: - Allergies: 19:33 No Known Allergies; ll1 - PMHx: 19:33 None; ll1 - PSHx: 19:33 ; ll1 - Immunization history:: Flu vaccine is not up to date. - Social history:: Smoking status: Patient reports the use of cigarette tobacco products, smokes one-half pack cigarettes per day. - Family history:: not pertinent. ROS: 21:12 Constitutional: Negative for fever, chills, and weight loss, Eyes: Negative for injury, pippa pain, redness, and discharge, Neck: Negative for injury, pain, and swelling, Cardiovascular: Negative for chest pain, palpitations, and edema, Respiratory: Negative for shortness of breath, cough, wheezing, and pleuritic chest pain, Abdomen/GI: Negative for abdominal pain, nausea, vomiting, diarrhea, and constipation, Back: Negative for injury and pain, : Negative for injury, bleeding, discharge, and swelling, MS/Extremity: Negative for injury and deformity, Skin: Negative for injury, rash, and discoloration, Neuro: Negative for headache, weakness, numbness, tingling, and seizure, Psych: Negative for depression, anxiety, suicide ideation, homicidal ideation, and hallucinations, Allergy/Immunology: Negative for hives, rash, and allergies, Endocrine: Negative for neck swelling, polydipsia, polyuria, polyphagia, and marked weight changes, Hematologic/Lymphatic: Negative for swollen nodes, abnormal bleeding, and unusual bruising. 21:12 ENT: Positive for of the hard palate and soft palate. Exam: 21:12 Constitutional: This is a well developed, well nourished patient who is awake, alert, pippa and in no acute distress. Head/Face: Normocephalic, atraumatic. Eyes: Pupils equal round and reactive to light, extra-ocular motions intact. Lids and lashes normal. Conjunctiva and sclera are non-icteric and not injected. Cornea within normal limits. Periorbital areas with no swelling, redness, or edema. Neck: Trachea midline, no thyromegaly or masses palpated, and no cervical lymphadenopathy. Supple, full range of motion without nuchal rigidity, or vertebral point tenderness. No Meningismus. Chest/axilla: Normal chest wall appearance and motion. Nontender with no deformity. No lesions are appreciated. Cardiovascular: Regular rate and rhythm with a normal S1 and S2. No gallops, murmurs, or rubs. Normal PMI, no JVD. No pulse deficits. Respiratory: Lungs have equal breath sounds bilaterally, clear to auscultation and percussion. No rales, rhonchi or wheezes noted. No increased work of breathing, no retractions or nasal flaring. Abdomen/GI: Soft, non-tender, with normal bowel sounds. No distension or tympany. No guarding or rebound. No evidence of tenderness throughout. Back: No spinal tenderness. No costovertebral tenderness. Full range of motion. Skin: Warm, dry with normal turgor. Normal color with no rashes, no lesions, and no evidence of cellulitis. MS/ Extremity: Pulses equal, no cyanosis. Neurovascular intact. Full, normal range of motion. Neuro: Awake and alert, GCS 15, oriented to person, place, time, and situation. Cranial nerves II-XII grossly intact. Motor strength 5/5 in all extremities. Sensory grossly intact. Cerebellar exam normal. Normal gait. Psych: Awake, alert, with orientation to person, place and time. Behavior, mood, and affect are within normal limits. 21:12 ENT: Mouth: Oral mucosa: moist, Gums: noted to have cellulitis, reddened, Tongue: is normal, abscess, that is minimal, that is moderate, of the hard palate and soft palate, Posterior pharynx: is normal, no acute changes. Vital Signs: 19:31 BP 139 / 102; Pulse 89; Resp 17; Temp 98.0; Pulse Ox 100% ; Height 5 ft. 3 in. (160.02 ll1 cm); Pain 7/10; 20:36 BP 150 / 97; Pulse 77; Resp 18; Pulse Ox 100% on R/A; vg1 Procedures: 21:42 I \T\ D: Incision and drainage was performed for an abscess of the right hard palate pippa Anesthetized with 5 ml's 1% Lidocaine. Incised with #11 blade. Splinting: Patient tolerated well. MDM: 20:36 Patient medically screened. [facility] 21:14 Differential diagnosis: dental caries, dental abscess. Data reviewed: vital signs, [facility] nurses notes, lab test result(s). Data interpreted: registered dietician: rate is 77 beats/min, rhythm is regular, Pulse oximetry: on room air is 100 %. Counseling: I had a detailed discussion with the patient and/or guardian regarding: the historical points, exam findings, and any diagnostic results supporting the discharge/admit diagnosis, the need for outpatient follow up, for definitive care, a dentist, an oral maxilofacial specialist. 12/23 21:11 Order name: Dressing - Wound; Complete Time: 21:23 [facility] 12/23 21:11 Order name: Gloves, Sterile; Complete Time: 21:23 [facility] 12/23 21:11 Order name: Setup Suture Tray; Complete Time: 21:23 [facility] Administered Medications: 21:23 Drug: Augmentin 875 mg Route: PO; vg1 21:53 Follow up: Response: No adverse reaction vg1 21:42 Drug: Lidocaine-Epinephrine -1%: (1:100,000) 5 ml Volume: 20 ml; Route: Infiltration; vg1 21:53 Drug: Clindamycin 600 mg Route: IM; Site: right gluteus; vg1 21:54 Follow up: Response: Medication administered at discharge. vg1 Disposition: 12/23/20 21:44 Discharged to Home. Impression: Dislocation of tooth, Dental caries, Cellulitis and abscess of mouth. - Condition is Stable. - Discharge Instructions: Cellulitis, Adult, Dental Pain, Gingivitis, Skin Abscess, [id number], Dental Pain, [id number]. - Prescriptions for Amoxicillin 500 mg Oral Capsule - take 1 capsule by ORAL route every 8 hours for 10 days; 30 tablet. Clindamycin HCl 300 mg Oral Capsule - take 1 capsule by ORAL route every 6 hours for 10 days; 40 capsule. Tylenol- Codeine #3 300-30 mg Oral Tablet - take 2 tablets by ORAL route every 6 hours As needed; 20 tablet. - Medication Reconciliation Form, Thank You Letter, Antibiotic Education, Prescription Opioid Use form. - Follow up: Private Physician; When: 2 - 3 days; Reason: Recheck today's complaints, Continuance of care, Re-evaluation by your physician. Follow up: Jer Edwards DDS; When: 2 - 3 days; Reason: Recheck today's complaints, Re-evaluation by your physician. - Problem is new. - Symptoms have improved. Signatures: Pool Vasquez MD MD cha Garcia, Victoria RN RN vg1 Tarun Heck RN RN ll1 Corrections: (The following items were deleted from the chart) 21:44 21:44 12/23/2020 21:44 Discharged to Home. Impression: Dislocation of tooth; Dental pippa caries; Cellulitis and abscess of mouth. Condition is Stable. Forms are Medication Reconciliation Form, Thank You Letter, Antibiotic Education, Prescription Opioid Use. Follow up: Private Physician; When: 2 - 3 days; Reason: Recheck today's complaints, Continuance of care, Re-evaluation by your physician. Problem is new. Symptoms have improved. [facility] 22:23 21:44 12/23/2020 21:44 Discharged to Home. Impression: Dislocation of tooth; Dental vg1 caries; Cellulitis and abscess of mouth. Condition is Stable. Forms are Medication Reconciliation Form, Thank You Letter, Antibiotic Education, Prescription Opioid Use. Follow up: Private Physician; When: 2 - 3 days; Reason: Recheck today's complaints, Continuance of care, Re-evaluation by your physician. Follow up: Jer Edwards; When: 2 - 3 days; Reason: Recheck today's complaints, Re-evaluation by your physician. Problem is new. Symptoms have improved. [facility]
--- NOTE | 2020-12-23 21:44 | ER ---
Nurse's Notes [facility] Name: Kimber Calvin Age: 30 yrs Sex: Female : 1990 Arrival Date: 12/23/2020 Time: 19:24 Bed 30 Private MD: Diagnosis: Dislocation of tooth;Dental caries;Cellulitis and abscess of mouth Presentation: 12/23 19:31 Chief complaint: Patient states: Noticed bump to palate of upper mouth since Sunday, ll1 getting worse since last night. No fever. Obvious swelling to R palate. Coronavirus screen: Client denies travel out of the [place] in the last 14 days. At this time, the client does not indicate any symptoms associated with coronavirus-19. Ebola Screen: Patient denies travel to an Ebola-affected area in the 21 days before illness onset. Initial Sepsis Screen: Does the patient meet any 2 criteria? No. Patient's initial sepsis screen is negative. Does the patient have a suspected source of infection? Yes: Skin breakdown/wound. Risk Assessment: Do you want to hurt yourself or someone else? Patient reports no desire to harm self or others. Onset of symptoms was December 21, 2020. 19:31 Method Of Arrival: Ambulatory ll1 19:31 Acuity: RUBY 4 ll1 Historical: - Allergies: 19:33 No Known Allergies; ll1 - PMHx: 19:33 None; ll1 - PSHx: 19:33 ; ll1 - Immunization history:: Flu vaccine is not up to date. - Social history:: Smoking status: Patient reports the use of cigarette tobacco products, smokes one-half pack cigarettes per day. - Family history:: not pertinent. Screenin:36 Abuse screen: Denies threats or abuse. Nutritional screening: No deficits noted. vg1 Tuberculosis screening: No symptoms or risk factors identified. Fall Risk No fall in past 12 months (0 pts). No secondary diagnosis (0 pts). No IV (0 pts). Ambulatory Aid- None/Bed Rest/Nurse Assist (0 pts). Gait- Normal/Bed Rest/Wheelchair (0 pts) Mental Status- Oriented to own ability (0 pts). Total Quach Fall Scale indicates No Risk (0-24 pts). Assessment: 20:34 General: Appears in no apparent distress. uncomfortable, Behavior is cooperative, vg1 crying. Pain: Complains of pain in hard palate Pain currently is 10 out of 10 on a pain scale. Pain began 2-3 days ago. Neuro: Level of Consciousness is awake, alert, obeys commands, Oriented to person, place, time, situation. Cardiovascular: Patient's skin is warm and dry. Respiratory: Airway is patent Respiratory effort is even, unlabored, Respiratory pattern is regular, symmetrical. GI: No signs and/or symptoms were reported involving the gastrointestinal system. : No signs and/or symptoms were reported regarding the genitourinary system. EENT: Throat is reddened. Derm: Skin is intact, is healthy with good turgor. Musculoskeletal: Circulation, motion, and sensation intact. Vital Signs: 19:31 BP 139 / 102; Pulse 89; Resp 17; Temp 98.0; Pulse Ox 100% ; Height 5 ft. 3 in. (160.02 ll1 cm); Pain 7/10; 20:36 BP 150 / 97; Pulse 77; Resp 18; Pulse Ox 100% on R/A; vg1 ED Course: 19:24 Patient arrived in ED. cl3 19:33 Triage completed. ll1 19:34 Arm band placed on. ll1 20:27 Dena Steinberg, RN is Primary Nurse. vg1 20:36 Pool Vasquez MD is Attending Physician. pippa 20:36 Patient has correct armband on for positive identification. Bed in low position. Call vg1 light in reach. Side rails up X 1. 21:44 Jer Edwards DDS is Referral Physician. pippa 22:22 No provider procedures requiring assistance completed. Patient did not have IV access vg1 during this emergency room visit. Administered Medications: 21:23 Drug: Augmentin 875 mg Route: PO; vg1 21:53 Follow up: Response: No adverse reaction vg1 21:42 Drug: Lidocaine-Epinephrine -1%: (1:100,000) 5 ml Volume: 20 ml; Route: Infiltration; vg1 21:53 Drug: Clindamycin 600 mg Route: IM; Site: right gluteus; vg1 21:54 Follow up: Response: Medication administered at discharge. vg1 Outcome: 21:44 Discharge ordered by . pippa 22:22 Discharged to home ambulatory. vg1 22:22 Condition: stable 22:22 Discharge instructions given to patient, Instructed on discharge instructions, follow up and referral plans. medication usage, Demonstrated understanding of instructions, follow-up care, medications, Prescriptions given X 3. 22:23 Patient left the ED. vg1 Signatures: Pool Vasquez MD MD cha Lewis, Charde cl3 Dena Steinberg, RN RN vg1 Tarun Heck RN RN ll1
[2020-12-23] MEDS ORDERED: CLINDAMYCIN IV 150 MG/ML (4 mL) VIAL ONE (22:03)
[2020-12-23 22:35] VITALS: TEMP 98; O2SAT 100
[2020-12-23 22:36] VITALS: BP 150/97
== END 2020-12-23 22:23 | disposition home or self-care (01) ==
LOC: ER 19:24
PROC: 0W930ZZ Drainage of Oral Cavity and Throat, Open Approach (ICD-10-PCS; principal; 2020-12-23)
DX: K12.2 Cellulitis and abscess of mouth (principal); K02.9 Dental caries, unspecified; F17.210 Nicotine dependence, cigarettes, uncomplicated
CPT/HCPCS: 96372; 99283; S0077

== ENCOUNTER 2023-11-01 10:00 | Emergency (ER) | payer SELFPAY ==
--- OUTSIDE RECORDS SUMMARY | 2023-11-01 10:08 | XMS REPORT | Continuity of Care Document ---
Author Name Unknown Address [address] [facility] [address] [place] [address] [facility] Address [address] [facility] [address] [place] [address] Care Team Providers Care Band Attacher Name Role Phone PCP, PATIENT DOES NOT HAVE A Primary Care Physic an Unavailable ELDON JULIAN Attending Clinician Unavaila Eldon Coleman Attending Clinician [phone] Héctor ITLLEY Attending Clinician Unavailable Héctor Granda Attending Clinician [phone] SHYLA IBARRA Attending Clinician Unavailable Sandra Babcock Attending Clinician [phone] Shyla Ibarra MD Attending Clinician [phone] YAYA CHÁVEZ Attending Clinician Unavailable Yaya Chávez MD Attending Clinician [phone] Janeth Cummins Attending Clinician [phone] Doctor Unassigned, [place] Attending Clinician U navailable Armani Graham Attending Clinician ARMANI SCHMIDT Attending Clinician Unavailab saul JORDANLE, FOLUSHO F Admitting Clinician Unavaila SHYLA Solorio Admitting Clinician Unavailable YAYA CHÁVEZ Admitting Clinician Unavailable Payers Payer Name Policy Type Policy Number Effective Date Expirati on Date Source Problems Condition Name Condition Details Condition Category Status Onset Date Resolution Date Last Treatment Date Treating Clinician Comments Source Screening for STD (sexually transmitte d disease) Screening for STD (sexually transmitte d disease) Disease Active 07-09 00:00: 00 [facility] Encounter for surveillan ce of contracept megan, unspecifie d contracept yoel Encounter for surveillan ce of contracept megan, unspecifie d contracept yoel Disease Active 07-09 00:00: 00 [facility] History of bilateral tubal ligation History of bilateral tubal ligation Disease Active 07-09 00:00: 00 [facility] Poor dental hygiene Poor dental hygiene Disease Active 07-09 00:00: 00 [facility] Class 2 obesity due to excess calories with body mass index (BMI) of 36.0 to 36.9 in adult, unspecifie d whether serious comorbidit y present Class 2 obesity due to excess calories with body mass index (BMI) of 36.0 to 36.9 in adult, unspecifie d whether serious comorbidit y present Disease Active 07-09 00:00: 00 [facility] BMI 36.0-36.9, adult BMI 36.0-36.9, adult Disease Active 07-09 00:00: 00 [facility] Tobacco use disorder Tobacco use disorder Disease Active 07-09 00:00: 00 [facility] Obesity (BMI 30-39.9) Obesity (BMI 30-39.9) Disease Active 04-29 00:00: 00 [facility] Allergies, Adverse Reactions, Alerts Allergy Name Allergy Type Status Severity Reaction(s) Onset Date Inactive Date Treating Clinician Comments Source NO KNOWN ALLERGIE S Drug Class Active [facility] Social History Social Habit Start Date Stop Date Quantity Comments Source History of tobacco use Cigarette Smoker [facility] History SDOH Alcohol Frequency [facility] History SDOH Alcohol Std Drinks [facility] History SDOH Alcohol Binge [facility] Exposure to SARS-CoV-2 (event) 2022-12-31 00:00:00 2023-01-10 08:23:00 Not sure [facility] History of Social function 2020-06-23 00:00:00 2020-06-23 00:00:00 [facility] Cigarettes smoked current (pack per day) - Reported 2019-07-09 00:00:00 2019-07-09 00:00:00 [facility] Tobacco use and exposure 2019-07-09 00:00:00 2019-07-09 00:00:00 Smokeless tobacco non-user [facility] Alcohol Comment 2019-07-09 00:00:00 2019-07-09 00:00:00 on occassion, x1/yr [facility] Tobacco Comment 2019-07-09 00:00:00 2019-07-09 00:00:00 has smoked for 20 yrs, not quitting at this time [facility] Sex Assigned At 1990 00:00:00 1990 00:00:00 [facility] Smoking Status Start Date Stop Date Source Unknown if [facility] smoked [facility] Smokes tobacco daily 2019-07-09 00:00:00 [facility] Medications Ordered Medication Name Filled Medication Name Start Date Stop Date Current Medication? Ordering Clinician Indication Dosage Frequency Signature (SIG) Comments Components Source ibuprofen 600 mg tablet 06-19 00:00: 00 Yes [id number] 600mg Take 1 tablet by mouth every 6 (six) hours as needed for Pain (scale 4-6). [facility] levo[facility] in D5W (LEVAQUIN) 750 mg/150 mL Piggyback 750 mg 2021-11 03:45: 00 10-05 05:38 :00 No 750mg 750 mg, IV Piggyback, ONCE, 1 dose, On Sun10/04/22 at 2145, Administer over 90 Minutes, 150 mL
Reas on for Anti-Infec tive: Documented Infection< br>Documen valentin Infection Site: Respirator y
Durat ion of Therapy: Other (see Comments) [facility] iopamidol (ISOVUE 370-500 mL) injection 74 mL 2021-11 03:30: 00 10-05 03:30 :00 No [id number] 74mL 74 mL, Intravenou s, ONCE, 1 dose, On Sun10/04/22 at 2130, Routine [facility] ipratropium -albuteroL (DUONEB) 0.5 mg-3 mg(2.5 mg base)/3 mL nebulizer solution 3 mL 2021-11 02:30: 00 10-05 01:48 :00 No 3mL 3 mL, Inhalation , ONCE NOW, 1 dose, On Sun10/04/22 at 2030, [facility] NaCl 0.9% (NS) bolus infusion 1,000 mL 2021-11 01:15: 00 10-05 03:00 :00 No 1000mL at 999 mL/hr, 1,000 mL, IV Infusion, ONCE, 1 dose, [facility]10/04/22 [facility] 1915[facility] codeine-gua ifenesin (ROBITUSSIN AC) 10-100 mg/5 mL oral solution 10 mL 2021-11 00:30: 00 10-05 01:03 :00 No 10mL 10 mL, Oral, ONCE, 1 dose, On Sun10/04/22 at 1830, [facility] dexamethaso ne sod phos PF injection 10 mg 2021-11 00:30: 00 10-05 01:03 :00 No 10mg 10 mg, Slow IV Push, ONCE, 1 dose, On Sun10/04/22 at 1830, 1 mL [facility] ketorolac (TORADOL) injection 30 mg 2021-11 00:30: 00 10-05 01:03 :00 No 30mg 30 mg, Slow IV Push, ONCE, 1 dose, On Sun10/04/22 at 1830, Routine [facility] ondansetron (ZOFRAN (PF)) injection 4 mg 2021-11 00:30: 00 10-05 01:03 :00 No 4mg 4 mg, Slow IV Push, ONCE, 1 dose, On Sun10/04/22 at 1830, [facility] levoFLOXaci n (LEVAQUIN) 750 mg tablet 2021-11 00:00: 00 Yes [id number] 750mg Take 1 tablet by mouth every 24 (twenty-fo ur) hours. [facility] levoFLOXaci n (LEVAQUIN) 750 mg tablet 2021-11 00:00: 00 Yes [id number] 750mg Take 1 tablet by mouth every 24 (twenty-fo ur) hours. [facility] levoFLOXaci n (LEVAQUIN) 750 mg tablet 2021-11 00:00: 00 Yes [id number] 750mg Take 1 tablet by mouth every 24 (twenty-fo ur) hours. [facility] predniSONE (DELTASONE) tablet 40 mg 2021-11 17:00: 00 09-30 16:06 :00 No 40mg 40 mg, Oral, ONCE, 1 dose, On 09/30/22 at 1100, [facility] albuterol (PROVENTIL) 2.5 mg /3 mL (0.083 %) nebulizer solution 5 mg 2021-11 16:45: 00 09-30 16:14 :00 No 5mg 5 mg, Inhalation , ONCE, 1 dose, On 09/30/22 at 1045, [facility] ondansetron (ZOFRAN (PF)) injection 4 mg 2021-11 15:30: 00 09-30 14:23 :00 No 4mg 4 mg, Slow IV Push, ONCE, 1 dose, On 09/30/22 at 0930, [facility] albuterol (PROVENTIL) 2.5 mg /3 mL (0.083 %) nebulizer solution 5 mg 2021-11 15:15: 00 09-30 14:27 :00 No 5mg 5 mg, Inhalation , ONCE, 1 dose, On 09/30/22 at 0915, ANTONIO [facility] NaCl 0.9% (NS) bolus infusion 1,000 mL 2021-11 15:00: 00 09-30 16:06 :00 No 1000mL at 999 mL/hr, 1,000 mL, IV Infusion, ONCE, 1 dose, On 09/30/22 at 0900, ANTONIO [facility] albuterol 90 mcg/actuati on inhaler 2021-11 00:00: 00 Yes [id number] 2{puff} Inhale 2 Puffs every 4 (four) hours as needed for Wheezing or Shortness of Breath. [facility] ondansetron 4 mg disintegrat ing tablet 2021-11 00:00: 00 Yes [id number] 4mg Take 1 tablet by mouth every 8 (eight) hours as needed for Nausea and Vomiting (N/V). [facility] albuterol 90 mcg/actuati on inhaler 2021-11 00:00: 00 Yes [id number] 2{puff} Inhale 2 Puffs every 4 (four) hours as needed for Wheezing or Shortness of Breath. [facility] ondansetron 4 mg disintegrat ing tablet 2021-11 00:00: 00 Yes [id number] 4mg Take 1 tablet by mouth every 8 (eight) hours as needed for Nausea and Vomiting (N/V). [facility] albuterol 90 mcg/actuati on inhaler 2021-11 00:00: 00 Yes [id number] 2{puff} Inhale 2 Puffs every 4 (four) hours as needed for Wheezing or Shortness of Breath. [facility] ondansetron 4 mg disintegrat ing tablet 2021-11 00:00: 00 Yes [id number] 4mg Take 1 tablet by mouth every 8 (eight) hours as needed for Nausea and Vomiting (N/V). [facility] albuterol 90 mcg/actuati on inhaler 2021-11 00:00: 00 Yes [id number] 2{puff} Inhale 2 Puffs every 4 (four) hours as needed for Wheezing or Shortness of Breath. [facility] ondansetron 4 mg disintegrat ing tablet 2021-11 00:00: 00 Yes [id number] 4mg Take 1 tablet by mouth every 8 (eight) hours as needed for Nausea and Vomiting (N/V). [facility] azithromyci n 250 mg tablet 2021-11 00:00: 00 10-06 05:59 :00 No [id number] Take 2 tablets by mouth daily for 1 day, THEN 1 tablet daily for 4 days. [facility] azithromyci n 250 mg tablet 2021-11 00:00: 00 10-06 05:59 :00 No [id number] Take 2 tablets by mouth daily for 1 day, THEN 1 tablet daily for 4 days. [facility] predniSONE 20 mg tablet 2021-11 00:00: 00 10-04 05:59 :00 No [id number] 40mg Take 2 tablets by mouth in the morning for 3 days. [facility] amoxicillin (TRIMOX) capsule 500 mg 08-07 01:00: 00 08-07 00:01 :00 No 500mg 500 mg, Oral, ONCE, 1 dose, On 08/06/21 at 1999, ANTONIO
Re ason for Anti-Infec tive: Documented Infection< br>Documen valentin Infection Site: HEENT
D uration of Therapy: 10 days [facility] HYDROcodone -acetaminop hen (NORCO) 10-325 mg tablet 1 tablet 08-07 01:00: 00 08-07 00:01 :00 No 1{tbl} 1 tablet, Oral, ONCE, 1 dose, On 08/06/21 at 1999, Routine [facility] amoxicillin (TRIMOX) capsule 500 mg 08-07 01:00: 00 08-07 00:01 :00 No 500mg 500 mg, Oral, ONCE, 1 dose, On 08/06/21 at 1999, ANTONIO
Re ason for Anti-Infec tive: Documented Infection< br>Jeremiah hanson Infection Site: HEENT
D uration of Therapy: 10 days [facility] HYDROcodone -acetaminop hen (NORCO) 10-325 mg tablet 1 tablet 08-07 01:00: 00 08-07 00:01 :00 No 1{tbl} 1 tablet, Oral, ONCE, 1 dose, On 08/06/21 at 2000, Routine [facility] ibuprofen 600 mg tablet 08-06 00:00: 00 Yes [id number] 600mg Take 1 tablet by mouth every 6 (six) hours as needed for Pain (scale 4-6). [facility] ibuprofen 600 mg tablet 08-06 00:00: 00 Yes [id number] 600mg Take 1 tablet by mouth every 6 (six) hours as needed for Pain (scale 4-6). [facility] ibuprofen 600 mg tablet 08-06 00:00: 00 Yes [id number] 600mg Take 1 tablet by mouth every 6 (six) hours as needed for Pain (scale 4-6). [facility] ibuprofen 600 mg tablet 08-06 00:00: 00 Yes [id number] 600mg Take 1 tablet by mouth every 6 (six) hours as needed for Pain (scale 4-6). [facility] ibuprofen 600 mg tablet 08-06 00:00: 00 Yes [id number] 600mg Take 1 tablet by mouth every 6 (six) hours as needed for Pain (scale 4-6). [facility] acetaminoph en-codeine 300-30 mg tablet 08-06 00:00: 00 Yes [id number] 1{tbl} Take 1 tablet by mouth every 4 (four) hours as needed for Pain (scale 4-6). Indication s: acute pain [facility] ibuprofen 600 mg tablet 08-06 00:00: 00 Yes [id number] 600mg Take 1 tablet by mouth every 6 (six) hours as needed for Pain (scale 4-6). [facility] acetaminoph en-codeine 300-30 mg tablet 08-06 00:00: 00 Yes [id number] 1{tbl} Take 1 tablet by mouth every 4 (four) hours as needed for Pain (scale 4-6). Indication s: acute pain [facility] acetaminoph en-codeine 300-30 mg tablet 08-06 00:00: 00 09-30 00:00 :00 No [id number] 1{tbl} Take 1 tablet by mouth every 4 (four) hours as needed for Pain (scale 4-6). Indication s: acute pain [facility] amoxicillin 500 mg capsule 08-06 00:00: 00 08-17 04:59 :00 No [id number] 500mg Take 1 capsule by mouth 3 (three) times daily for 10 days. [facility] amoxicillin 500 mg capsule 08-06 00:00: 00 08-17 04:59 :00 No [id number] 500mg Take 1 capsule by mouth 3 (three) times daily for 10 days. [facility] azithromyci n (ZITHROMAX Z-MORIS) 250 mg tablet 12-17 00:00: 00 Yes 250mg Take 1 Tab by mouth daily. [facility] benzonatate (TESSALON PERLES) 100 mg capsule 12-17 00:00: 00 Yes 100mg Take 1 Cap by mouth 3 (three) times daily as needed for Cough. [facility] traMADOL (ULTRAM) 50 mg tablet 12-17 00:00: 00 Yes 50mg Take 1 Tab by mouth every 8 (eight) hours as needed for Pain (scale 4-6). [facility] azithromyci n (ZITHROMAX Z-MORIS) 250 mg tablet 12-17 00:00: 00 Yes 250mg Take 1 Tab by mouth daily. [facility] benzonatate (TESSALON PERLES) 100 mg capsule 12-17 00:00: 00 Yes 100mg Take 1 Cap by mouth 3 (three) times daily as needed for Cough. [facility] traMADOL (ULTRAM) 50 mg tablet 12-17 00:00: 00 Yes 50mg Take 1 Tab by mouth every 8 (eight) hours as needed for Pain (scale 4-6). [facility] azithromyci n (ZITHROMAX Z-MORIS) 250 mg tablet 12-17 00:00: 00 Yes 250mg Take 1 Tab by mouth daily. [facility] benzonatate (TESSALON PERLES) 100 mg capsule 12-17 00:00: 00 Yes 100mg Take 1 Cap by mouth 3 (three) times daily as needed for Cough. [facility] traMADOL (ULTRAM) 50 mg tablet 12-17 00:00: 00 Yes 50mg Take 1 Tab by mouth every 8 (eight) hours as needed for Pain (scale 4-6). [facility] azithromyci n (ZITHROMAX Z-MORIS) 250 mg tablet 12-17 00:00: 00 Yes 250mg Take 1 Tab by mouth daily. [facility] benzonatate (TESSALON PERLES) 100 mg capsule 12-17 00:00: 00 Yes 100mg Take 1 Cap by mouth 3 (three) times daily as needed for Cough. [facility] traMADOL (ULTRAM) 50 mg tablet 12-17 00:00: 00 Yes 50mg Take 1 Tab by mouth every 8 (eight) hours as needed for Pain (scale 4-6). [facility] azithromyci n (ZITHROMAX Z-MORIS) 250 mg tablet 12-17 00:00: 00 09-30 00:00 :00 No 250mg Take 1 Tab by mouth daily. [facility] benzonatate (TESSALON PERLES) 100 mg capsule 12-17 00:00: 00 09-30 00:00 :00 No 100mg Take 1 Cap by mouth 3 (three) times daily as needed for Cough. [facility] traMADOL (ULTRAM) 50 mg tablet 12-17 00:00: 00 09-30 00:00 :00 No 50mg Take 1 Tab by mouth every 8 (eight) hours as needed for Pain (scale 4-6). [facility] Vital Signs Vital Name Observation Time Observation Value Comments S ourvalentina Systolic blood pressure 2023-06-20 03:00:00 134 mm[Hg] [facility] Diastolic blood pressure 2023-06-20 03:00:00 93 mm[Hg] [facility] Heart rate 2023-06-20 03:00:00 75 /min [facility] Body temperature 2023-06-20 03:00:00 37.22 Marisol [facility] Respiratory rate 2023-06-20 03:00:00 16 /min [facility] Oxygen saturation in Arterial blood by Pulse oximetry 2023-06-20 03:00:00 100 /min [facility] Body height 2023-06-20 01:00:00 160 cm [facility] Body weight 2023-06-20 01:00:00 99.791 kg [facility] BMI 2023-06-20 01:00:00 38.97 kg/m2 [facility] Systolic blood pressure 2023-01-10 16:03:51 135 mm[Hg] [facility] Diastolic blood pressure 2023-01-10 16:03:51 80 mm[Hg] [facility] Heart rate 2023-01-10 16:03:51 88 /min [facility] Body temperature 2023-01-10 16:03:51 36.72 Marisol [facility] Respiratory rate 2023-01-10 16:03:51 18 /min [facility] Oxygen saturation in Arterial blood by Pulse oximetry 2023-01-10 16:03:51 99 /min [facility] Body height 2023-01-10 14:05:00 160 cm [facility] Body weight 2023-01-10 14:05:00 95.754 kg [facility] BMI 2023-01-10 14:05:00 37.39 kg/m2 [facility] Systolic blood pressure 2022-10-05 03:00:00 128 mm[Hg] [facility] Diastolic blood pressure 2022-10-05 03:00:00 82 mm[Hg] [facility] Heart rate 2022-10-05 03:00:00 77 /min [facility] Respiratory rate 2022-10-05 03:00:00 25 /min [facility] Oxygen saturation in Arterial blood by Pulse oximetry 2022-10-05 03:00:00 96 /min [facility] Body temperature 2022-10-05 00:13:00 36.56 Marisol [facility] Body weight 2022-10-05 00:13:00 83.915 kg [facility] BMI 2022-10-05 00:13:00 32.77 kg/m2 [facility] Respiratory rate 2022-09-30 16:32:00 24 /min [facility] Oxygen saturation in Arterial blood by Pulse oximetry 2022-09-30 16:32:00 100 /min [facility] Systolic blood pressure 2022-09-30 16:30:00 136 mm[Hg] [facility] Diastolic blood pressure 2022-09-30 16:30:00 95 mm[Hg] [facility] Heart rate 2022-09-30 16:30:00 103 /min [facility] Body temperature 2022-09-30 13:48:00 37.61 Marisol [facility] Body height 2022-09-30 13:48:00 160 cm [facility] Body weight 2022-09-30 13:48:00 83.915 kg [facility] BMI 2022-09-30 13:48:00 32.77 kg/m2 [facility] Systolic blood pressure 2021-08-06 23:31:00 151 mm[Hg] [facility] Diastolic blood pressure 2021-08-06 23:31:00 95 mm[Hg] [facility] Heart rate 2021-08-06 23:31:00 85 /min [facility] Body temperature 2021-08-06 23:31:00 36.89 Marisol [facility] Respiratory rate 2021-08-06 23:31:00 14 /min [facility] Body height 2021-08-06 23:31:00 160 cm [facility] Body weight 2021-08-06 23:31:00 96.344 kg [facility] BMI 2021-08-06 23:31:00 37.62 kg/m2 [facility] Oxygen saturation in Arterial blood by Pulse oximetry 2021-08-06 23:31:00 100 /min [facility] Systolic blood pressure 2020-12-23 16:24:00 145 mm[Hg] [facility] Diastolic blood pressure 2020-12-23 16:24:00 95 mm[Hg] [facility] Heart rate 2020-12-23 16:24:00 85 /min [facility] Body temperature 2020-12-23 16:24:00 37.06 Marisol [facility] Respiratory rate 2020-12-23 16:24:00 18 /min [facility] Body weight 2020-12-23 16:24:00 72.576 kg [facility] BMI 2020-12-23 16:24:00 27.46 kg/m2 [facility] Oxygen saturation in Arterial blood by Pulse oximetry 2020-12-23 16:24:00 97 /min [facility] Systolic blood pressure 2020-12-23 16:24:00 145 mm[Hg] [facility] Diastolic blood pressure 2020-12-23 16:24:00 95 mm[Hg] [facility] Heart rate 2020-12-23 16:24:00 85 /min [facility] Body temperature 2020-12-23 16:24:00 37.06 Marisol [facility] Respiratory rate 2020-12-23 16:24:00 18 /min [facility] Body weight 2020-12-23 16:24:00 72.576 kg [facility] BMI 2020-12-23 16:24:00 27.46 kg/m2 [facility] Oxygen saturation in Arterial blood by Pulse oximetry 2020-12-23 16:24:00 97 /min [facility] Procedures Procedure Date / Time Performed Performing Clinician Source ASSIGNMENT OF BENEFITS 2023-06-20 02:08:44 Docto r Unassigned, [place] [facility] NOTICE OF PRIVACY PRACTICES 2023-06-20 00:49:02 Doctor Unassigned, [place] [facility] CONSENT/REFUSAL FOR DIAGNOSIS AND TREATMENT 2023-06-20 00:47:54 Doctor Unassigned, [place] [facility] POCT GLUCOSE(AGE >30DAYS) 2023-01-10 15:16:00 Héctor Tilley Christie [facility] COMP. METABOLIC PANEL ([id number]) 2023-01-10 15:09:00 Héctor Tilley Christie [facility] CBC WITH DIFF 2023-01-10 15:09:00 Héctor Tilley Christie [facility] POCT GLUCOSE (AUTOMATED) 2023-01-10 15:07:00 éHctor Tilley Christie [facility] CONSENT/REFUSAL FOR DIAGNOSIS AND TREATMENT 2023-01-10 13:56:57 Doctor Unassigned, [place] [facility] CT CHEST PULMONARY ANGIOGRAM 2022-10-05 02:32:00 Shyla Ibarra [facility] EKG-12 LEAD 2022-10-05 01:47:35 Sandra Bishop [facility] POCT TEST 2022-10-05 01:09:00 Kiana Bishop [facility] LIPASE 2022-10-05 01:08:00 Sandra Bishop [facility] TROPONIN I 2022-10-05 01:08:00 Sandra Bishop [facility] COMP. METABOLIC PANEL ([id number]) 2022-10-05 01:08:00 Sandra Bishop [facility] CBC WITH DIFF 2022-10-05 01:08:00 Sandra Bishop [facility] PROTHROMBIN TIME / INR 2022-10-05 01:08:00 Miracle Bishop [facility] D-DIMER 2022-10-05 01:08:00 Sandra Bishop [facility] URINALYSIS 2022-10-05 01:08[facility] 2022-10-05 01:08:00 Kiana Bishop [facility] N-TERMINAL PRO-BNP 2022-10-05 01:08:00 Marjan Bishop [facility] COVID-19 (ID NOW RAPID TESTING) 2022-10-05 01:08:00 Sandra Bishop [facility] XR CHEST 2 VW 2022-10-05 00:47:35 Sandra Bishop [facility] CONSENT/REFUSAL FOR DIAGNOSIS AND TREATMENT 2022-10-04 23:39:51 Doctor Unassigned, [place] [facility] XR CHEST 2 VW 2022-09-30 14:55:00 Yaya Chávez [facility] BASIC METABOLIC PANEL (NA, K, CL, CO2, GLUCOSE, BUN, CREATININE, CA) 2022-09-30 14:21:00 Yaya Chávez [facility] CBC WITH DIFF 2022-09-30 14:21:00 Yaya Chávez [facility] RAPID INFLUENZA A/B 2022-09-30 14:21:00 Yaya Chávez [facility] COVID-19 (ID NOW RAPID TESTING) 2022-09-30 14:21:00 Yaya Chávez [facility] NOTICE OF PRIVACY PRACTICES 2022-09-30 13:43:47 Doctor Unassigned, [place] [facility] CONSENT/REFUSAL FOR DIAGNOSIS AND TREATMENT 2022-09-30 13:42:11 Doctor Unassigned, [place] [facility] CONSENT/REFUSAL FOR DIAGNOSIS AND TREATMENT 2021-08-06 23:28:05 Doctor Unassigned, [place] [facility] CONSENT/REFUSAL FOR DIAGNOSIS AND TREATMENT 2020-12-23 16:05:07 Doctor Unassigned, [place] [facility] NOTICE OF PRIVACY PRACTICES 2020-12-23 16:04:54 Doctor Unassigned, [place] [facility] Encounters Start Date/Time End Date/Time Encounter Type Admission Type Attending [facility] Care Facility Care Department Encounter ID Source 2021-09-19 23:38:[address] [facility] [id number] [facility] 2021-09-17 21:47:[address] [facility] [id number] [facility] 2023-06-19 20:05:00 2023-06-19 22:50:00 Emergency [facility] ERT [id number] [facility] 2023-06-19 20:05:00 2023-06-19 22:50:00 Emergency Eldon Julian [facility] 1.840.114 350.1.13.10 4.2.7.2.686 [id number] [facility] 2023-01-10 08:07:00 2023-01-10 10:05:00 Emergency X JAREK Héctor [facility] ERT [id number] [facility] 2023-01-10 08:07:00 2023-01-10 10:05:00 Emergency Jarek Héctor Christie [facility] 1.84.114 350.1.13.10 4.2.7.2.686 [id number] [facility] 2022-10-04 18:15:00 2022-10-04 23:40:00 Emergency X SHYLA IBARRA [facility] ERT [id number] [facility] 2022-10-04 18:15:00 2022-10-04 23:40:00 Emergency Sandra Bishop Donnell [facility] 1.84.114 350.1.13.10 4.2.7.2.686 [id number] [facility] 2022-09-30 07:51:00 2022-09-30 11:05:00 Emergency X YAYA CHÁVEZ [facility] ERT [id number] [facility] 2022-09-30 07:51:00 2022-09-30 11:05:00 Emergency Yaya Chávez [facility] 1.840.114 350.1.13.10 4.2.7.2.686 [id number] [facility] 2021-08-06 18:33:00 2021-08-06 19:06:00 Emergency Héctor Tilley [facility] 1.2.840.114 350.1.13.10 4.2.7.2.686 [id number] [id number] [facility] 2020-12-23 10:36:00 2020-12-23 13:33:00 Emergency Janeth Jolly [facility] 1.2.840.114 350.1.13.10 4.2.7.2.686 [id number] 2020-12-23 10:36:00 2020-12-23 13:33:00 Emergency Janeth Jolly [facility] 1.2.840.114 350.1.13.10 4.2.7.2.686 [id number] [id number] [facility] 2020-12-23 00:00:00 2020-12-23 00:00:00 Orders Only Doctor Unassigned, [place] [facility] 1.2.840.114 350.1.13.10 4.2.7.2.686 [id number] 2020-12-23 00:00:00 2020-12-23 00:00:00 Orders Only Doctor Unassigned, [place] [facility] 1.2.840.114 350.1.13.10 4.2.7.2.686 [id number] [facility] 2019-07-09 08:09:09 2019-07-09 09:11:20 Office Visit Armani Schmidt [facility] L[employer]ER [facility] 1.2.840.114 350.1.13.10 4.2.7.2.686 [id number] 2019-07-09 07:45:00 2019-07-09 09:11:20 Outpatient R ARMANI SCHMIDT [facility] [id number] [facility] Results Test Description Test Time Test Comments Results Result Co mments Source [facility] WITH [id number] 15:25:00* Test Item Value Reference Range Interpretation Comme nts WBC (test code = 6690-2) 7.87 See_Comment [Automated messa ge] The system which generated this result transmitted reference range: 4.30 - 11.10 10*3/?L. The reference range was not used to interpret this result as normal/abnormal. RBC (test code = 789-8) 4.14 See_Comment [Automated messa ge] The system which generated this result transmitted reference range: 3.93 - 5.25 10*6/?L. The reference range was not used to interpret this result as normal/abnormal. HGB (test code = 718-7) 13.3 g/dL 11.6-15.0 HCT (test code = 4544-3) 38.6 % 35.7-45.2 MCV (test code = 787-2) 93.2 fL 80.6-95.5 MCH (test code = 785-6) 32.1 pg 25.9-32.8 MCHC (test code = 786-4) 34.5 g/dL 31.6-35.1 RDW-SD (test code = 09740-1) 44.5 fL 39.0-49.9 RDW-CV (test code = 788-0) 13.0 % 12.0-15.5 PLT (test code = 777-3) 275 See_Comment [Automated messa ge] The system which generated this result transmitted reference range: 166 - 358 10*3/?L. The reference range was not used to interpret this result as normal/abnormal. MPV (test code = 47884-4) 10.7 fL 9.5-12.9 NRBC/100 WBC (test code = 6883000921) 0.0 See_Comment [Automated me ssage] The system which generated this result transmitted reference range: 0.0 - 10.0 /100 WBCs. The reference range was not used to interpret this result as normal/abnormal. NRBC x10^3 (test code = 3425671897) See_Comment [Automated me ssage] The system which generated this result transmitted reference range: 10*3/?L. The reference range was not used to interpret this result as normal/abnormal. GRAN MAT (NEUT) % (test code = 770-8) 54.4 % IMM GRAN % (test code = 5472354204) 0.30 % LYMPH % (test code = 736-9) 35.7 % MONO % (test code = 5905-5) 6.0 % EOS % (test code = 713-8) 2.7 % BASO % (test code = 706-2) 0.9 % GRAN MAT x10^3(ANC) (test code = 7728401428) 4.29 10*3/uL 1.88-7.09 IMM GRAN x10^3 (test code = 2802158674) 0.00-0.06 LYMPH x10^3 (test code = 731-0) 2.81 10*3/uL 1.32-3.29 MONO x10^3 (test code = 742-7) 0.47 10*3/uL 0.33-0.92 EOS x10^3 (test code = 711-2) 0.21 10*3/uL 0.03-0.39 BASO x10^3 (test code = 704-7) 0.07 10*3/uL 0.01-0.07 [facility] GLUCOSE (AUTOMATED)2023-01-10 15:18:21* Test Item Value Reference Range Interpretation Comme nts POCT GLU (test code = 7225652252) 104 mg/dL 70-110 Lab Interpretation (test cod e = 88904-2) Normal [facility] GLUCOSE(AGE >30DAYS)2023-01-10 15:16:00* Test Item Value Reference Range Interpretation Comme nts POCT Glu (age>30days) (test code = 3342) 104 mg/dL 70-110 Lab Interpretation (test cod e = 68557-7) Normal [facility] [id number] 01:09:00* Test Item Value Reference Range Interpretation Comme nts POCT PREG (test code = 1605) negative On board controls acceptable with C Line (test code = 3574) present POCT PREG LOT # (test code = 3575) [id number] POCT PREG TEST DATE ( test code = 3576) Lab Interpretation (test cod e = 65529-7) Normal [facility] Notes Date/Time Note Provider Source 2023-06-19 22:48:50 4948-94-32I97:48:50F ormatting of this note might be different from the original.Pt given printed and verbal discharge instructions regarding acute pain of right footPrescriptions providedDiscussed ibuprofen and to take with food to avoid GI distress.Pt verbalized understanding of instructions, pt awake alert oriented, resp reg unlabored, skin w/d, color appropriate for race, moves all ext well,pt encouraged to follow up with pcpAdvised to seek medical attention for new/prolonged/worsening of symptomsNo adverse reaction to meds given in ER noted upon dischargeAwake, alert oriented, resp reg unlabored, skin w/d, pt leaving amb with steady gait, in no apparent distress 95279-3Pdrytzegz department JbldPX8173-87-55B47:49:22Emergenc y department NoteTXT1.2.840.507138.1.13.104.2. 7.2.573375|[id number] for patient [id number] A Diaz RNUT[address]TXTX[address] 524MZPITGFMFEINBNJUGIBKCU6393-87- 01T22:49:221.2.840.089110.1.72.3. 15|1.2.840.822422.1.13.104.2.7.2. [id number] Meghan Benoit RN [facility] 2023-06-19 19:59:33 0569-31-84O80:59:33F ormatting of this note might be different from the original.Pt states that she kicked the cabinet with the right foot around 1230 today, no having pain to the outside and under the foot, no deformity noted, pulses present 30333-4Tqbypqifr department Triage ajnwPM0022-82-47O83:00:38Emergenc y department Triage noteTXT1.2.840.943590.1.13.104.2. 7.2.014014|[id number] for patient mjyy13248-2Scvxwpjcm department [id number] J Hoot RN[address]TXTX[address] 832MWOYNGUOPCSZSDPQQJFKJM3800-94- 01T20:00:381.2.840.162680.1.72.3. 15|1.2.840.418024.1.13.104.2.7.2. 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 History of Present Illness:Ms. Krause is a 32 year old female presenting to the ER with right foot pain. She states that it began today around noon after she kicked a cabinet with her foot. She reports that the pain is diffuse over her entire foot. She has tried to treat it with ice but reports being very sensitive to it and not tolerating it. Patient denies any previous injuries or surgeries to that foot. Pain is rated a 10/10. Patient has no drug allergies.In terms of physical exam, she is able to stand on her foot but has pain with any movement of the foot. No echymosis or swelling noted.Past Medical History/Immunizations:Past Medical History: Diagnosis Date Depression diagnosed as a manic depression as a child, not taking medication Screening for STD (sexually transmitted disease) 07/09/2019 Tetanus received in last 5 years: NoChildhood immunizations: Up-to-date Allergies:No Known AllergiesPast Social History:Tobacco Use Every Day; 1.00 packs/day; Types: Cigarettes Smokeless Tobacco: Never used smokeless tobacco. Comments: has smoked for 20 yrs, not quitting at this time Alcohol Use Comments: on occassion, x1/yr Drug Use Yes; Marijuana; 2 times per week. Comments: 2x/wk Sexual Activity Sexually active; Partners: Male; Control/Protection: Surgical. Comments: last sexual intercourse 07/07/2019 Past Surgical History:Past Surgical History: Procedure Laterality Date SECTION 03/08/2004 07/14/2006, 08/23/2007 TUBAL LIGATION 08/23/2007 Review of Systems: Review of SystemsPhysical Exam: ED Triage Vitals [06/19/231999] Weight 99.8 kg (220 lb) Actual or estimated Height 1.6 m (5' 3") BP (!) 134/93 Pulse 77 Resp 18 Temp 37.2 ?C (99 ?F) Temp src SpO2 99 % Measured on Room air Physical ExamRadiology:XR FOOT 3+ VW RIGHT Preliminary Result EXAM: XR FOOT 3+ VW RIGHT HISTORY: right foot pain COMPARISON: None available. FINDINGS: Radiographs of the right foot demonstrate no acute fracture or dislocation. The joint spaces are maintained. Posterior calcaneal enthesophytes are seen. IMPRESSION No acute bony abnormality. Preliminary Report Dictated by Resident: Thea Durand Lab Results:Lab Results - No data to displayEKG:If EKG completed, see Procedure Note. Orders and Treatments:Orders Placed This Encounter Procedures XR FOOT 3+ VW RIGHT Orders Placed This Encounter Medications ibuprofen 600 mg tablet First Provider Eval:ED Events Date/Time Event User Comments 06/19/232035 Medical Screening Begins ELDON JULIAN -- 06/19/232035 First Provider Evaluation ELDON JULIAN -- No notes of EC Admission Criteria type on file.ED COURSEED Course as of 06/19/232233Jun 19, 20232226 Patient presents to the ED with [FI] 2208 XR FOOT 3+ VW RIGHTRadiographs of the right foot demonstrate no acute fracture or dislocation.The joint spaces are maintained. Posterior calcaneal enthesophytes areseen. [FI] ED Course User Index[FI] Eldon Julian FNP Diagnosis/Impression as of 06/19/232233 Acute pain of right foot Procedures: ProceduresMDM:Medical Decision MakingAmount and/or Complexity of Data ReviewedRadiology: ordered. Decision-making details documented in ED Course.RiskPrescription drug management. Flowsheet Documentation: Scoring Tools: No data recorded Disposition/Condition:ED Disposition ED Disposition Disch - Home Condition Stable Comment -- Discharge Medications:Patient's Medications START taking these medications IBUPROFEN 600 MG TABLET Take 1 tablet by mouth every 6 (six) hours as needed for Pain (scale 4-6). CONTINUE taking these medications which have NOT CHANGED ALBUTEROL 90 MCG/ACTUATION INHALER Inhale 2 Puffs every 4 (four) hours as needed for Wheezing or Shortness of Breath. IBUPROFEN 600 MG TABLET Take 1 tablet by mouth every 6 (six) hours as needed for Pain (scale 4-6). LEVOFLOXACIN (LEVAQUIN) 750 MG TABLET Take 1 tablet by mouth every 24 (twenty-four) hours. ONDANSETRON 4 MG DISINTEGRATING TABLET Take 1 tablet by mouth every 8 (eight) hours as needed for Nausea and Vomiting (N/V). START taking Modified Medications as Prescribed No medications on file STOP taking these medications No medications on file Follow-up:Electronically signed by: Eldon Julian FNP06/19/232233 ssociated attestation - Hreber Ojeda MD - 06/19/2023 10:40 PM CDT Josie was personally available for consultation in the Emergency Department during this encounter and patient evaluation by CRISTINA Julian.34583-9Memtjnzym Emergency department [id number], Pedram A1.2.840.927439.1.13.104.2.7.2.83 8145RptrsvtMsjhuaJNX5426-94-32X20 :40:55Physician Emergency department NoteTXT1.2.840.831537.1.13.104.2. 7.2.066394|[id number] for patient lqnr59939-6Baflomuuc department NoteLN[address] UdeeTmeyobtndJwnrmgkaxPBPZ1914151 303WOPBSFLAETORCSMQSOLMRP5000-59- 01T22:40:551.2.840.634742.1.72.3. 15|1.2.840.066154.1.13.104.2.7.2. [id number] [facility]
[2023-11-01 10:37] LABS: Absolute Lymphocytes (CBC) 2.6 K/uL (0.7-4.9); Hematocrit 40.1 % (36.0-45.0); Lymphocytes % 39.8 % (15.3-44.8); MCV 94.2 fL (80-100); Platelets 218 thou/uL (152-406); RBC Red Blood Cell Count 4.26 M/uL (3.86-4.86)
[2023-11-01 10:54] LABS: Urine Bacteria <20 /HPF (<20); Urine Bilirubin NEGATIVE (Negative); Urine Blood Negative (Negative); Urine Clarity Turbid (Clear); Urine Color Light-Yellow (Yellow); Urine Glucose NEGATIVE (Negative); Urine Mucus Slight /HPF (None Seen); Urine Protein TRACE (Negative); Urine RBC <5 /HPF (None Seen); Urine Urobilinogen Normal (Normal)
--- NOTE | 2023-11-01 11:28 | RAD REPORT ---
EXAM DESCRIPTION: CT - Head Brain Wo Cont - 11/01/2023 10:41 am CLINICAL HISTORY: SEIZURE COMPARISON: Head Brain Wo Cont dated 11/13/2021 TECHNIQUE: Noncontrast head CT images were obtained without IV contrast. Multiplanar reformats were generated and reviewed. All CT scans are performed using dose optimization technique as appropriate and may include automated exposure control or mA/KV adjustment according to patient size. FINDINGS: No intracranial hemorrhage, mass, or edema. Midline structures are unremarkable. Normal ventricular caliber for age. Vidal-white matter differentiation is preserved, without evidence of acute infarct. No abnormal extra- axial fluid collections. Mastoid air cells are well aerated. Polypoidal mucosal thickening at the bases of both maxillary sinu ses. No acute bony findings. IMPRESSION: No evidence of an acute intracranial process. Polypoidal mucosal thickening at the basis of both maxillary sinuses, could relate to odontogenic dis ease.
[2023-11-01 13:34] LABS: Albumin 4.3 g/dL (3.4-5.0); Bilirubin Total 0.2 mg/dL (0.2-1.0); Potassium 3.6 mEq/L (3.5-5.1); Protein, Total 7.9 g/dL (6.4-8.2)
--- NOTE | 2023-11-01 13:38 | EDPHYS ---
Physician Documentation [facility] Name: Kimber Calvin Age: 32 yrs Sex: Female : 1990 Arrival Date: 11/01/2023 Time: 10:00 Bed 19 Private MD: ED Physician Shai Denise HPI: 11/01 10:14 This 32 yrs old Female presents to ER via EMS with complaints of seizure. ec2 10:14 Patient arrives today for evaluation of seizure-like activity. Patient with history of ec2 seizure, most recently 1 week ago, states that she had been at work and subsequently bystanders had noticed that she had loss of consciousness as well as focality with abnormal movement of an extremity. No reported head injuries or trauma, patient complained of a headache. Patient reports no nausea or vomiting, denies diarrhea, denies cough and cold symptoms.. 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 - Social history:: Smoking status: Patient reports the use of cigarette tobacco products, smokes one pack cigarettes per day. ROS: 10:14 Constitutional: as per hpi ec2 Exam: 10:14 Constitutional: GEN: NAD Head: atraumatic Eyes: EOMI Ears: External ears are ec2 normal. CV: regular rate LUNGS: no respiratory distress ABD: non-distended SKIN: no evidence of rashes MSK: no evidence of trauma NEURO: moves all extremities equally, cranial nerves II through XII intact, strength intact in all 4 extremities, negative pronator drift Vital Signs: 10:08 BP 126 / 86; Pulse 87; Resp 16; Temp 97.7; Pulse Ox 100% ; Weight 95.25 kg; Height 5 cp4 ft. 3 in. ; Pain 0/10; 11:00 BP 135 / 76; Pulse 86; Resp 18; Pulse Ox 100% ; cp4 12:00 BP 139 / 78; Pulse 81; Resp 18; Pulse Ox 100% ; cp4 13:00 BP 136 / 92; Pulse 83; Resp 18; Pulse Ox 100% ; cp4 10:08 Body Mass Index 37.20 (95.25 kg, 160.02 cm) cp4 10:08 Pain Scale: Adult cp4 MDM: 10:08 Patient medically screened. ec2 10:14 Data reviewed: vital signs. ED course: Patient arrives today due to concern for ec2 seizure-like activity. Examination remarkable for well-appearing nontoxic individual who is neuro intact and otherwise in no acute distress. Will obtain lab work, CT imaging and reassess the patient. Currently assessing for , electrolyte disturbances, intracranial masses and bleeds.. 10:33 ED course: EKG independently reviewed and interpreted by me, shows normal sinus rhythm, ec2 rate of 91, no acute ST segment elevations, nonconcerning intervals.. 10:56 ED course: CBC is reassuring. Urine is noninfectious appearing. is negative. .ec2 11:38 ED course: CT scan of the head shows no acute intracranial process.. ec2 13:35 ED course: Metabolic profile is reassuring. When I went rediscussed the results with ec2 the patient of the metabolic profile, patient had eloped. I had discussed possibly starting antiepileptic medication and patient states she was considering however did not have resolution of this due to patient eloping. During my initial update regarding her CT imaging and initial labs, I started her that I would recommend antiepileptic medication administration however the patient was hesitant, instructed her that she would benefit from neurology follow-up as well as she is likely to have another seizure and potentially may have a life-threatening emergency.. 12 10:14 Order name: CBC with Diff; Complete Time: 10:56 ec2 11/01 10:14 Order name: CMP; Complete Time: 13:35 ec2 11/01 10:14 Order name: Test, Urine; Complete Time: 10:56 ec2 11/01 10:14 Order name: UAM; Complete Time: 10:56 ec2 11/01 10:14 Order name: CT Head Brain wo Cont; Complete Time: 11:38 ec2 11/01 10:14 Order name: EKG; Complete Time: 10:14 ec2 11/01 10:14 Order name: EKG - Nurse/Tech; Complete Time: 10:29 ec2 11/01 10:42 Order name: Labs - recollect needed: Lt Green.; Complete Time: 13:21 bc6 Administered Medications: No medications were administered Disposition Summary: 11/01/23 13:37 Eloped Notes: Disposition: after being seen by provider ec2 Reason: unknown ec2 Diagnosis - Other seizures ec2 Followup: ec2 - With: Preston Richmond MD - When: - Reason: Recheck today's complaints Signatures: Dispatcher [employer] Leila Escobar bc6 Shai Denise MD MD ec2 Juli Wheatley cp4
--- NOTE | 2023-11-01 13:38 | ER ---
Nurse's Notes [facility] Name: Kimber Calvin Age: 32 yrs Sex: Female : 1990 Arrival Date: 11/01/2023 Time: 10:00 Bed 19 Private MD: Diagnosis: Other seizures Presentation: 11/01 10:08 Chief complaint: EMS states: Seizure. EMS reports states she had 4-5 days ago. cp4 Takes no medications. Coronavirus screen: Vaccine status: Patient reports receiving the 2nd dose of the covid vaccine. Client denies travel out of the [place] in the last 14 days. Ebola Screen: Patient negative for fever greater than or equal to 101.5 degrees Fahrenheit, and additional compatible Ebola Virus Disease symptoms Patient denies exposure to infectious person. Patient denies travel to an Ebola-affected area in the 21 days before illness onset. No symptoms or risks identified at this time. Initial Sepsis Screen: Does the patient meet any 2 criteria? No. Patient's initial sepsis screen is negative. Does the patient have a suspected source of infection? No. Patient's initial sepsis screen is negative. Risk Assessment: Do you want to hurt yourself or someone else? Patient reports no desire to harm self or others. Onset of symptoms was November 01, 2023. 10:08 Method Of Arrival: EMS: [facility] cp4 10:08 Acuity: RUBY 3 cp4 Triage Assessment: 10:11 General: Appears in no apparent distress. Behavior is calm, cooperative, appropriate cp4 for age. Pain: Denies pain. 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 - Social history:: Smoking status: Patient reports the use of cigarette tobacco products, smokes one pack cigarettes per day. Screenin:12 [facility] ED Fall Risk Assessment (Adult) History of falling in the last 3 months, cp4 including since admission No falls in past 3 months (0 pts). [facility] ED Fall Risk Assessment (Adult) Confusion or Disorientation No (0 pts) Intoxicated or Sedated No (0 pts) Impaired Gait No (0 pts) Mobility Assist Device Used No (0 pt) Altered Elimination No (0 pt) Score/Fall Risk Level 0 - 2 = Low Risk Oriented to surroundings, Maintained a safe environment, Educated pt \T\ family on fall prevention, incl call for assistance when getting out of bed, Assessed \T\ reinforced patient's understanding of fall precautions, Hourly rounding (assess needs \T\ fall precautionary measures) done. Abuse screen: Denies threats or abuse. Nutritional screening: No deficits noted. Tuberculosis screening: No symptoms or risk factors identified. Vital Signs: 10:08 BP 126 / 86; Pulse 87; Resp 16; Temp 97.7; Pulse Ox 100% ; Weight 95.25 kg; Height 5 cp4 ft. 3 in. ; Pain 0/10; 11:00 BP 135 / 76; Pulse 86; Resp 18; Pulse Ox 100% ; cp4 12:00 BP 139 / 78; Pulse 81; Resp 18; Pulse Ox 100% ; cp4 13:00 BP 136 / 92; Pulse 83; Resp 18; Pulse Ox 100% ; cp4 10:08 Body Mass Index 37.20 (95.25 kg, 160.02 cm) cp4 10:08 Pain Scale: Adult cp4 ED Course: 10:06 Patient arrived in ED. cp4 10:08 Shai Denise MD is Attending Physician. ec2 10:08 Juli Wheatley is Primary Nurse. cp4 10:11 Triage completed. cp4 10:11 Arm band placed on right wrist. Patient placed in an exam room, on a stretcher. cp4 10:12 Placed in gown. Bed in low position. Call light in reach. Side rails up X 1. Side rails cp4 up X2. 10:12 No provider procedures requiring assistance completed. cp4 10:12 Maintain EMS IV. Dressing intact. Good blood return noted. Site clean \T\ dry. Gauge \T\ cp 4 site: 22 G right forearm. 10:42 CT Head Brain wo Cont In Process Unspecified. EDMS 13:37 Preston Richmond MD is Referral Physician. ec2 Administered Medications: No medications were administered Medication: 10:12 VIS not applicable for this client. cp4 Outcome: 13:39 Patient left the ED. cp4 Signatures: Dispatcher [employer] EDMS Shai Denise MD MD ec2 Juli Wheatley cp4
[2023-11-01 13:48] VITALS: TEMP 97.7; O2SAT 100
[2023-11-01 13:55] VITALS: BP 136/92
--- NOTE | 2023-11-05 12:36 | EKG ---
Test Date: 2023-11-01 Test Time: 10:25:53 Second Baller: JAROD MEASUREMENT RESULTS: Intervals: Rate: 91 TN: 128 QRSD: 94 QT: 384 QTc: 472 [place]: P: 63 TN: 128 QRS: 35 T: 50 INTERPRETIVE STATEMENTS: Normal sinus rhythm with sinus arrhythmia Normal ECG No previous ECG available for comparison Electronically Signed On 11-05-23 12:28:19 FIFTH HAND by Mehdi Maldonado
== END 2023-11-01 13:39 | disposition left against medical advice (07) ==
LOC: ER 10:00
DX: R56.9 Unspecified convulsions (principal)
CPT/HCPCS: 36415; 70450; 80053; 81001; 81025; 85025; 93005; 99283